=== PATIENT | female | born 1935 | race Two or more races ===

== ENCOUNTER 2017-02-17 02:25 | Observation (INO) | payer MEDICAID, OTHER ==
[~2017-02-17] VITALS: Ht 165.1 cm; Wt 82.0 kg
[2017-02-17] VITALS (15 sets, daily range): BP systolic 103–158; BP diastolic 51–75
[~2017-02-17 02:25] MED LIST: DIO160T PO; DIPH-423 PO; VALS160T2 PO
[2017-02-17] MEDS ORDERED: nitroGLYCERIN 0.4mg SUBLingual tab SL PRN ×2 (02:30→09:10)
[2017-02-17] MEDS ORDERED: aspirin 81mg tab.chew PO ONE (02:30)
[2017-02-17 02:56] LABS: BASOPHILS % (AUTO) 0.5 % (0-1); EOSINOPHILS # (AUTO) 0.2 X10'3 (0-0.9); EOSINOPHILS % (AUTO) 1.9 % (0-6); HEMOGLOBIN 14.1 g/dl (12.0-16.0); LYMPHOCYTES # (AUTO) 2.9 X10'3 (1.1-4.8); LYMPHOCYTES % (AUTO) 33.3 % (21-51); MEAN CORPUSCULAR HEMOGLOBIN 28.5 PG (27.0-31.0); MEAN CORPUSCULAR HGB CONC 33.6 % (33.0-36.5); MEAN CORPUSCULAR VOLUME 84.9 FL (78-98); MEAN PLATELET VOLUME 7.2 FL (7.4-10.4); MONOCYTES # (AUTO) 0.8 X10'3 (0-0.9); MONOCYTES % (AUTO) 9.5 % (2-12); NEUTROPHILS # (AUTO) 4.7 X10'3 (1.8-7.7); NEUTROPHILS % (AUTO) 54.8 % (42-75); PLATELET COUNT 365 X10'3 (140-440); RED BLOOD COUNT 4.95 X10'6 (4.20-5.60); RED CELL DISTRIBUTION WIDTH 13.4 % (11.5-14.5); WHITE BLOOD COUNT 8.6 X10'3 (4.5-11.0)
[2017-02-17 03:07] LABS: PARTIAL THROMBOPLASTIN TIME 25 SECONDS (22-32); PROTHROMBIN TIME 10.3 SECONDS (9.0-12.0)
[2017-02-17 03:12] LABS: ALANINE AMINOTRANSFERASE 22 U/L (12-78); ALBUMIN 3.3 G/DL (3.4-5.0); ALBUMIN/GLOBULIN RATIO 0.8 (1.1-1.5); ALKALINE PHOSPHATASE 80 IU/L (46-116); ANION GAP 5 (8-16); ASPARTATE AMINO TRANSFERASE 14 U/L (10-37); BILIRUBIN,TOTAL 0.2 MG/DL (0.1-1.0); BLOOD UREA NITROGEN 11 MG/DL (7-18); BUN/CREATININE RATIO 13.3 (6.6-38.0); CALCIUM 8.9 MG/DL (8.5-10.1); CHLORIDE 106 MMOL/L (99-107); CREATININE 0.83 MG/DL (0.40-0.90); GLUCOSE 135 MG/DL (70-104); MAGNESIUM 1.9 MG/DL (1.5-2.4); POTASSIUM 4.4 MMOL/L (3.5-5.1); SODIUM 140 MMOL/L (135-145); TOTAL PROTEIN 7.3 G/DL (6.4-8.2); eGFR 66 ML/MIN
[2017-02-17] MEDS ORDERED: normal saline 1000ml 1,000 ML IV SCH ×2 (08:42→10:58)
[2017-02-17] MEDS ORDERED: magnesium Cl slow-release 64mg tablet PO PRN ×2 (08:45→11:00)
[2017-02-17] MEDS ORDERED: HYDROcodone/acetaminophen 5mg/325mg tablet PO PRN (08:45)
[2017-02-17] MEDS ORDERED: magnesium hydroxide 30ml (MOM) UD suspension PO PRN ×2 (08:45→11:00)
[2017-02-17] MEDS ORDERED: mag hydrox/Alum hydrox/simeth 30ml oral suspension PO PRN ×2 (08:45→11:00)
[2017-02-17] MEDS ORDERED: HYDROcodone/acetaminophen 10/325mg tab PO PRN (08:45)
[2017-02-17] MEDS ORDERED: magnesium 4gm in 100ml NS 100 ML IV PRN ×2 (08:45→11:00)
[2017-02-17] MEDS ORDERED: morphine 8mg/ml inj. syringe IV PRN ×2 (08:45)
[2017-02-17] MEDS ORDERED: acetaminophen 325mg tablet PO PRN ×3 (08:45→11:00)
[2017-02-17] MEDS ORDERED: ondansetron/PF 4mg/2ml inj IV PRN ×2 (08:45→11:00)
[2017-02-17] MEDS ORDERED: potassium Cl 20 mEq SR tablet PO PRN ×4 (08:45→11:00)
[2017-02-17] MEDS ORDERED: potassium Cl 40MEQ/NS 500ml 500 ML IV PRN ×4 (08:45→11:00)
[2017-02-17] MEDS ORDERED: magnesium 2GM in 50ml NS 50 ML IV PRN ×2 (08:45→11:00)
[2017-02-17] MEDS ORDERED: AMOX500C2 PO (08:48)
[2017-02-17] MEDS ORDERED: BENZ200C53 PO (08:52)
[2017-02-17] MEDS ORDERED: AMLO5TAB16 PO (08:52)
[2017-02-17] MEDS ORDERED: LOSA50TA37 PO (08:52)
[2017-02-17] MEDS: K and/or MAG REPLACEMENT MC SCH (09:06)
[2017-02-17] MEDS ORDERED: aminophylline 250mg/10ml inj. IV PRN (09:10)
[2017-02-17] MEDS ORDERED: metoprolol tartrate 1mg/ml inj IV PRN (09:10)
[2017-02-17] MEDS: regadenoson 0.4mg/5ml syringe IV ONE ×2 (09:52→12:49)
[2017-02-17] MEDS ORDERED: K and/or MAG REPLACEMENT MC SCH (11:00)
[2017-02-17] MEDS ORDERED: aminophylline inj. 10 ML IV ONE (12:40)
[2017-02-17] MEDS ORDERED: regadenoson 0.4mg/5ml syringe IV ONE (12:40)
[2017-02-17] MEDS ORDERED: isosorbide mononitrate 30mg tab.SR.24H PO ONE ×2 (17:25→19:10)
[2017-02-17] MEDS: docusate sod 100mg capsule PO SCH (20:00)
[2017-02-17] MEDS: losartan 25mg tablet PO SCH (20:00)
[2017-02-17] MEDS ORDERED: temazepam 15mg capsule PO PRN ×2 (21:00)
[2017-02-18 02:00] VITALS: BP 97/54
[2017-02-18 05:14] LABS: BASOPHILS % (AUTO) 0.4 % (0-1); EOSINOPHILS # (AUTO) 0.2 X10'3 (0-0.9); HEMATOCRIT 38.6 % (35.0-45.0); HEMOGLOBIN 12.9 g/dl (12.0-16.0); LYMPHOCYTES # (AUTO) 2.3 X10'3 (1.1-4.8); LYMPHOCYTES % (AUTO) 26.4 % (21-51); MEAN CORPUSCULAR HEMOGLOBIN 28.3 PG (27.0-31.0); MEAN CORPUSCULAR HGB CONC 33.5 % (33.0-36.5); MEAN CORPUSCULAR VOLUME 84.6 FL (78-98); MEAN PLATELET VOLUME 7.5 FL (7.4-10.4); NEUTROPHILS # (AUTO) 5.2 X10'3 (1.8-7.7); NEUTROPHILS % (AUTO) 60.2 % (42-75); PLATELET COUNT 327 X10'3 (140-440); RED BLOOD COUNT 4.57 X10'6 (4.20-5.60); RED CELL DISTRIBUTION WIDTH 13.7 % (11.5-14.5); WHITE BLOOD COUNT 8.6 X10'3 (4.5-11.0)
[2017-02-18 05:30] VITALS: BP 107/51
[2017-02-18 05:30] LABS: PROTHROMBIN TIME 10.4 SECONDS (9.0-12.0)
[2017-02-18 05:41] LABS: ALBUMIN 2.9 G/DL (3.4-5.0); ANION GAP 9 (8-16); BLOOD UREA NITROGEN 14 MG/DL (7-18); BUN/CREATININE RATIO 16.7 (6.6-38.0); CALCIUM 8.8 MG/DL (8.5-10.1); CHLORIDE 105 MMOL/L (99-107); CREATININE 0.84 MG/DL (0.40-0.90); GLUCOSE 131 MG/DL (70-104); MAGNESIUM 1.9 MG/DL (1.5-2.4); POTASSIUM 4.4 MMOL/L (3.5-5.1); SODIUM 140 MMOL/L (135-145); TOTAL CARBON DIOXIDE 25.8 MMOL/L (24-32); eGFR 65 ML/MIN
[2017-02-18 08:00] VITALS: BP_SYST 124; BP_SYST 128; BP_SYST 133; BP_DIAS 52; BP_DIAS 62; BP_DIAS 85
[2017-02-18] MEDS: K and/or MAG REPLACEMENT MC SCH (08:00)
[2017-02-18] MEDS ORDERED: enoxaparin 40mg/0.4ml syringe SQ SCH ×2 (08:00)
[2017-02-18] MEDS: losartan 25mg tablet PO SCH (08:00)
[2017-02-18] MEDS: docusate sod 100mg capsule PO SCH (08:00)
[2017-02-18] MEDS ORDERED: PANT40TA4 PO (10:27)
[2017-02-18] MEDS ORDERED: ASPI81TA52 PO (10:27)
== END 2017-02-18 11:30 | disposition home or self-care (01) ==
LOC: ER 02:26 → PCU 3S 11:07
PROVIDERS: ADMIT Internal Medicine; ATTEND Internal Medicine
DX: R07.89 Other chest pain (principal); K21.9 Gastro-esophageal reflux disease without esophagitis; J44.9 Chronic obstructive pulmonary disease, unspecified; I10 Essential (primary) hypertension; I07.1 Rheumatic tricuspid insufficiency; I34.0 Nonrheumatic mitral (valve) insufficiency
CPT/HCPCS: 36415; 71010; 78452; 80048; 80053; 83735; 84484; 85025; 85610; 85730; 87070; 93005; 93017; 93306; 96360; 99285; A9500; G0378; J0280; J2785; J7030; J1650

== ENCOUNTER 2018-04-23 13:33 | Emergency (ER) | payer MEDICAID ==
[~2018-04-23] VITALS: Ht 170.2 cm; Wt 86.4 kg
[~2018-04-23 13:33] MED LIST changes: +AMLO5TAB16 PO; +BENZ200C53 PO; -DIO160T PO; -DIPH-423 PO; +LOSA50TA64 PO; +PANT40TA4 PO; -VALS160T2 PO
[2018-04-23 14:20] LABS: BASOPHILS % (AUTO) 0.7 % (0-1); EOSINOPHILS # (AUTO) 0.1 X10'3 (0-0.9); EOSINOPHILS % (AUTO) 1.7 % (0-6); HEMATOCRIT 43.1 % (35.0-45.0); HEMOGLOBIN 14.3 g/dl (12.0-16.0); LYMPHOCYTES # (AUTO) 2.4 X10'3 (1.1-4.8); LYMPHOCYTES % (AUTO) 36.1 % (21-51); MEAN CORPUSCULAR HEMOGLOBIN 28.7 PG (27.0-31.0); MEAN CORPUSCULAR HGB CONC 33.3 g/dL (33.0-36.5); MEAN CORPUSCULAR VOLUME 86.1 FL (78-98); MEAN PLATELET VOLUME 8.3 FL (7.4-10.4); MONOCYTES # (AUTO) 0.8 X10'3 (0-0.9); MONOCYTES % (AUTO) 11.7 % (2-12); NEUTROPHILS # (AUTO) 3.4 X10'3 (1.8-7.7); NEUTROPHILS % (AUTO) 49.8 % (42-75); PLATELET COUNT 277 X10'3 (140-440); RED CELL DISTRIBUTION WIDTH 13.7 % (11.5-14.5); WHITE BLOOD COUNT 6.8 X10'3 (4.5-11.0)
[2018-04-23 14:29] LABS: ALANINE AMINOTRANSFERASE 27 U/L (12-78); ALBUMIN 3.6 G/DL (3.4-5.0); ALKALINE PHOSPHATASE 103 IU/L (46-116); ANION GAP 10 (8-16); ASPARTATE AMINO TRANSFERASE 15 U/L (10-37); BILIRUBIN,TOTAL 0.3 MG/DL (0.1-1.0); BLOOD UREA NITROGEN 16 MG/DL (7-18); BUN/CREATININE RATIO 20.3 (6.6-38.0); CALCIUM 9.4 MG/DL (8.5-10.1); CHLORIDE 102 MMOL/L (99-107); CREATININE 0.79 MG/DL (0.40-0.90); GLUCOSE 161 MG/DL (70-104); POTASSIUM 3.8 MMOL/L (3.5-5.1); SODIUM 139 MMOL/L (135-145); TOTAL CARBON DIOXIDE 27.1 MMOL/L (24-32); TOTAL PROTEIN 7.3 G/DL (6.4-8.2); eGFR 70 ML/MIN
[2018-04-23] MEDS ORDERED: ibuprofen tablet 400 MG TABLET PO ONE (14:40)
[2018-04-23 14:42] LABS: MAGNESIUM 1.8 MG/DL (1.5-2.4)
[2018-04-23] MEDS ORDERED: ibuprofen 200mg tablet PO ONE (14:45)
[2018-04-23 15:02] VITALS: BP 114/71
[2018-04-23 15:10] LABS: D-DIMER 0.56 MG/L FEU (0-0.50)
== END 2018-04-23 15:52 | disposition home or self-care (01) ==
LOC: ER 13:33
DX: R07.89 Other chest pain (principal); I10 Essential (primary) hypertension; J44.9 Chronic obstructive pulmonary disease, unspecified; F17.210 Nicotine dependence, cigarettes, uncomplicated
CPT/HCPCS: 36415; 71045; 80053; 83735; 83880; 84484; 85025; 85379; 85610; 93005; 99284

== ENCOUNTER 2018-06-04 07:10 | Inpatient (IN) | payer MEDICAID | END 2018-06-22 13:20 | LOC: ICU 2S 06-21 02:38 → ER 07:10 → ICU 2S 11:15 ==

== ENCOUNTER 2019-07-26 09:08 | Outpatient (CLI) | payer MEDICAID ==
[~2019-07-26] VITALS: Ht 160 cm; Wt 76.0 kg
[2019-07-26] VITALS (7 sets, daily range): BP systolic 140–165; BP diastolic 49–69
[~2019-07-26 09:08] MED LIST changes: -AMLO5TAB16 PO; +ASPI-1 PO; +ATOR20TA66 PO; -BENZ200C53 PO; +CLOP75TA35 PO; +COR3.125T PO; +IPRA3AMP9 NEB; +LACT1CAP26 PO; +LISI-642 PO; -LOSA50TA64 PO; +MYC15CR TP; +NYST1000 PO
[2019-07-26] MEDS ORDERED: nitroGLYCERIN 0.4mg SUBLingual tab SL PRN (10:25)
[2019-07-26] MEDS ORDERED: aminophylline 250mg/10ml inj. IV PRN (10:25)
[2019-07-26] MEDS ORDERED: normal saline 500ml IV soln 500 ML IV ONE (10:25)
[2019-07-26] MEDS ORDERED: regadenoson 0.4mg/5ml syringe IV ONE (10:25)
== END 2019-07-26 23:59 | disposition home or self-care (01) ==
LOC: RAD 09:08
PROVIDERS: ATTEND Internal Medicine Cardiovascular Disease
DX: I25.10 Atherosclerotic heart disease of native coronary artery without angina pectoris (principal)
CPT/HCPCS: 78452; 82948; 93017; A9500; J2785; J7040

== ENCOUNTER 2019-08-01 13:04 | Outpatient (CLI) | payer MEDICAID | END 2019-08-01 23:59 | disposition home or self-care (01) | LOC: CARD DIAG 13:04 | PROVIDERS: ATTEND Internal Medicine Cardiovascular Disease | DX: I08.0 Rheumatic disorders of both mitral and aortic valves (principal); I25.10 Atherosclerotic heart disease of native coronary artery without angina pectoris | CPT/HCPCS: 93306 ==

== ENCOUNTER 2019-10-05 10:41 | Emergency (ER) | payer MEDICAID ==
[~2019-10-05] VITALS: Ht 170.2 cm; Wt 76.4 kg
[2019-10-05] MEDS ORDERED: aspirin 81mg tab.chew PO ONE (10:50)
[2019-10-05] MEDS ORDERED: nitroGLYCERIN 0.4mg SUBLingual tab SL PRN (10:50)
--- NOTE | 2019-10-05 11:04 | NUR ---
PT TAKEN TO CT FROM ROOM 19.
[2019-10-05 11:26] LABS: BASOPHILS % (AUTO) 0.5 % (0-1); EOSINOPHILS # (AUTO) 0.1 X10'3 (0-0.9); EOSINOPHILS % (AUTO) 1.2 % (0-6); HEMATOCRIT 44.5 % (35.0-45.0); HEMOGLOBIN 14.8 g/dl (12.0-16.0); LYMPHOCYTES # (AUTO) 1.9 X10'3 (1.1-4.8); LYMPHOCYTES % (AUTO) 33.5 % (21-51); MEAN CORPUSCULAR HEMOGLOBIN 28.6 PG (27.0-31.0); MEAN CORPUSCULAR HGB CONC 33.4 g/dL (33.0-36.5); MEAN CORPUSCULAR VOLUME 85.7 FL (78-98); MEAN PLATELET VOLUME 7.8 FL (7.4-10.4); MONOCYTES # (AUTO) 0.6 X10'3 (0-0.9); MONOCYTES % (AUTO) 10.1 % (2-12); NEUTROPHILS # (AUTO) 3.1 X10'3 (1.8-7.7); NEUTROPHILS % (AUTO) 54.7 % (42-75); PLATELET COUNT 241 X10'3 (140-440); RED BLOOD COUNT 5.19 X10'6 (4.20-5.60); RED CELL DISTRIBUTION WIDTH 14.4 % (11.5-14.5); WHITE BLOOD COUNT 5.7 X10'3 (4.5-11.0)
[2019-10-05 11:39] LABS: ALANINE AMINOTRANSFERASE 26 U/L (12-78); ALBUMIN 3.9 G/DL (3.4-5.0); ALBUMIN/GLOBULIN RATIO 1.1 (1.1-1.5); ALKALINE PHOSPHATASE 78 IU/L (46-116); ANION GAP 7 (8-16); ASPARTATE AMINO TRANSFERASE 19 U/L (10-37); BILIRUBIN,TOTAL 0.4 MG/DL (0.1-1.0); BLOOD UREA NITROGEN 17 MG/DL (7-18); CALCIUM 9.6 MG/DL (8.5-10.1); CHLORIDE 104 MMOL/L (99-107); CREATININE 0.85 MG/DL (0.40-0.90); GLUCOSE 121 MG/DL (70-104); SODIUM 140 MMOL/L (135-145); TOTAL CARBON DIOXIDE 28.8 MMOL/L (24-32); TOTAL PROTEIN 7.4 G/DL (6.4-8.2); eGFR 64 ML/MIN
--- NOTE | 2019-10-05 11:42 | NUR ---
jaren rascon at bedside assessing the cp ,notified pt has not taken any nitro or aspirin.pt denies any cp at this time ,pt has taken asprin in morning .
--- NOTE | 2019-10-05 12:11 | NUR ---
discussed the poc to daughter as told by jaren rascon.pt and daughter verbalized understanding denies nay concern.
--- NOTE | 2019-10-05 12:20 | NUR ---
PT WALKED TO RESTROOM WITH HER DAUGHTER NO DISTRESS NOTED ,DENIES ANY DIZZINESS OR LIGHTHEADEDNESS.
[2019-10-05 13:37] VITALS: BP 144/76
== END 2019-10-05 13:38 | disposition home or self-care (01) ==
LOC: ER 10:42
DX: I10 Essential (primary) hypertension (principal); R07.89 Other chest pain; R42 Dizziness and giddiness; R51 Headache; I25.10 Atherosclerotic heart disease of native coronary artery without angina pectoris; E78.00 Pure hypercholesterolemia, unspecified; I25.2 Old myocardial infarction; J44.9 Chronic obstructive pulmonary disease, unspecified; K21.9 Gastro-esophageal reflux disease without esophagitis; Z98.890 Other specified postprocedural states; Z72.89 Other problems related to lifestyle; Z79.82 Long term (current) use of aspirin; Z79.899 Other long term (current) drug therapy
CPT/HCPCS: 36415; 70450; 71045; 80053; 83880; 84484; 85025; 93005; 99285

== ENCOUNTER → 2020-03-26 | Outpatient (CLI) | payer MEDICAID ==
[~2020-03-26] VITALS: Ht 160 cm; Wt 79.0 kg
[2020-03-26] VITALS (8 sets, daily range): BP systolic 143–176; BP diastolic 64–73
[~2020-03-26] MED LIST changes: +CLOP75TA34 PO; -CLOP75TA35 PO; -PANT40TA4 PO; +PANT40TA54 PO; +aminophylline 250mg/10ml inj. IV PRN; +aminophylline inj. 10 ML IV ONE; +nitroGLYCERIN 0.4mg SUBLingual tab SL PRN; +normal saline 500ml IV soln 500 ML IV ONE; +regadenoson 0.4mg/5ml syringe IV ONE
== END | disposition home or self-care (01) ==
LOC: RAD 07:55
PROVIDERS: ATTEND Internal Medicine Cardiovascular Disease
DX: R07.9 Chest pain, unspecified (principal)
CPT/HCPCS: 78452; 93017; A9500; J0280; J7040

== ENCOUNTER 2020-05-10 19:17 | Emergency (ER) | payer MEDICAID ==
[~2020-05-10] VITALS: Ht 167.6 cm; Wt 78.6 kg
[~2020-05-10 19:17] MED LIST changes: -aminophylline 250mg/10ml inj. IV PRN; -aminophylline inj. 10 ML IV ONE; -nitroGLYCERIN 0.4mg SUBLingual tab SL PRN; -normal saline 500ml IV soln 500 ML IV ONE; -regadenoson 0.4mg/5ml syringe IV ONE
[2020-05-10 21:23] LABS: BASOPHILS % (AUTO) 0.2 % (0-1); EOSINOPHILS # (AUTO) 0.1 X10'3 (0-0.9); HEMATOCRIT 40.9 % (35.0-45.0); HEMOGLOBIN 13.6 g/dl (12.0-16.0); LYMPHOCYTES # (AUTO) 1.9 X10'3 (1.1-4.8); LYMPHOCYTES % (AUTO) 21.4 % (21-51); MEAN CORPUSCULAR HEMOGLOBIN 28.4 PG (27.0-31.0); MEAN CORPUSCULAR HGB CONC 33.3 g/dL (33.0-36.5); MEAN CORPUSCULAR VOLUME 85.2 FL (78-98); MEAN PLATELET VOLUME 8.3 FL (7.4-10.4); MONOCYTES # (AUTO) 0.9 X10'3 (0-0.9); MONOCYTES % (AUTO) 9.7 % (2-12); NEUTROPHILS % (AUTO) 67.7 % (42-75); PLATELET COUNT 228 X10'3 (140-440); RED CELL DISTRIBUTION WIDTH 14.3 % (11.5-14.5); WHITE BLOOD COUNT 8.9 X10'3 (4.5-11.0)
[2020-05-10 21:29] LABS: CLARITY,URINE CLEAR (Clear); COLOR,URINE YELLOW (Yellow); GLUCOSE, URINE NEGATIVE (Neg); KETONES,URINE NEGATIVE (Neg); LEUKOCYTE ESTERASE ,URINE NEGATIVE (Neg); NITRITES, URINE NEGATIVE (Neg); OCCULT BLOOD,URINE NEGATIVE (Neg); PROTEIN,URINE NEGATIVE (Neg); UROBILINOGEN,URINE 0.2 E.U/dL (0.2-1.0)
[2020-05-10 21:35] LABS: PARTIAL THROMBOPLASTIN TIME 25 SECONDS (22-32)
[2020-05-10] MEDS ORDERED: acetaminophen 325mg tablet PO ONE (21:35)
[2020-05-10 21:36] LABS: ALANINE AMINOTRANSFERASE 26 U/L (12-78); ALBUMIN 3.5 G/DL (3.4-5.0); ALKALINE PHOSPHATASE 71 IU/L (46-116); ANION GAP 8 (8-16); ASPARTATE AMINO TRANSFERASE 16 U/L (10-37); BILIRUBIN,TOTAL 0.2 MG/DL (0.1-1.0); BLOOD UREA NITROGEN 21 MG/DL (7-18); BUN/CREATININE RATIO 24.7 (6.6-38.0); CHLORIDE 103 MMOL/L (99-107); CREATININE 0.85 MG/DL (0.40-0.90); GLUCOSE 112 MG/DL (70-104); SODIUM 138 MMOL/L (135-145); TOTAL CARBON DIOXIDE 27.3 MMOL/L (24-32); TOTAL PROTEIN 6.9 G/DL (6.4-8.2); eGFR 64 ML/MIN
[2020-05-10 21:41] LABS: UA COLLECTION TYPE CLN CATCH MIDSTREAM
[2020-05-10] MEDS ORDERED: dexamethasone sod phosphate 10mg/ml inj IV STA (22:13)
[2020-05-10] MEDS ORDERED: ketorolac tromethamine 15mg/ml inj. IV ONE (22:15)
[2020-05-10] MEDS ORDERED: proCHLORperazine 10 MG/2 ml inj IV ONE (22:15)
[2020-05-10] MEDS ORDERED: diphenhydrAMINE 50 mg/ml inj IV ONE (22:15)
[2020-05-10] MEDS ORDERED: normal saline 1000ml 1,000 ML IV ONE (22:15)
--- NOTE | 2020-05-10 22:21 | NUR ---
GARCIA IN ROOM PATIENT REFUSED IVF AND MEDICATION
--- NOTE | 2020-05-10 22:23 | NUR ---
GARCIA EXPLAINED WHAT THE MEDICATIONS WERE FOR WAITING TO INITIATE IVF REFUSES MEDICATION WANTS TO GO HOME. REFUSES IVF OR IV FOR HOME DAUGHTER AND PATIENT WANT TO GO HOME
--- NOTE | 2020-05-10 22:26 | NUR ---
FAMILY REQUESTING COVID SWAB PRIOR TO LEAVING .
[2020-05-10 23:00] VITALS: BP 155/81
== END 2020-05-10 23:02 | disposition home or self-care (01) ==
LOC: ER 19:19
DX: G43.909 Migraine, unspecified, not intractable, without status migrainosus (principal); Z20.822 Contact with and (suspected) exposure to COVID-19; I25.10 Atherosclerotic heart disease of native coronary artery without angina pectoris; E78.00 Pure hypercholesterolemia, unspecified; I10 Essential (primary) hypertension; I25.2 Old myocardial infarction; J44.9 Chronic obstructive pulmonary disease, unspecified; K21.9 Gastro-esophageal reflux disease without esophagitis; Z98.890 Other specified postprocedural states; Z72.89 Other problems related to lifestyle; Z88.8 Allergy status to other drugs, medicaments and biological substances; Z79.82 Long term (current) use of aspirin; Z79.899 Other long term (current) drug therapy
CPT/HCPCS: 36415; 70450; 71045; 80053; 81003; 82948; 84484; 85025; 85610; 85651; 85730; 93005; 99285; U0003

== ENCOUNTER 2020-05-29 14:15 | Outpatient (CLI) | payer MEDICAID | END 2020-05-29 23:59 | disposition home or self-care (01) | LOC: RT 14:15 | PROVIDERS: ATTEND Student in an Organized Health Care Education/Training Program | DX: R94.2 Abnormal results of pulmonary function studies (principal) | CPT/HCPCS: 94010 ==

== ENCOUNTER 2020-11-06 11:29 | Inpatient (IN) | payer MEDICAID ==
[~2020-11-06] VITALS: Ht 162.6 cm; Wt 82.9 kg
[2020-11-06 12:10] LABS: BASOPHILS # (AUTO) 0.1 X10'3 (0-0.2); BASOPHILS % (AUTO) 1.7 % (0-1); EOSINOPHILS # (AUTO) 0.1 X10'3 (0-0.9); EOSINOPHILS % (AUTO) 1.7 % (0-6); HEMATOCRIT 43.8 % (35.0-45.0); HEMOGLOBIN 14.5 g/dl (12.0-16.0); LYMPHOCYTES # (AUTO) 1.7 X10'3 (1.1-4.8); MEAN CORPUSCULAR HEMOGLOBIN 28.6 PG (27.0-31.0); MEAN CORPUSCULAR HGB CONC 33.1 g/dL (33.0-36.5); MEAN CORPUSCULAR VOLUME 86.5 FL (78-98); MEAN PLATELET VOLUME 7.9 FL (7.4-10.4); MONOCYTES # (AUTO) 0.5 X10'3 (0-0.9); MONOCYTES % (AUTO) 10.6 % (2-12); NEUTROPHILS # (AUTO) 2.8 X10'3 (1.8-7.7); PLATELET COUNT 236 X10'3 (140-440); RED BLOOD COUNT 5.06 X10'6 (4.20-5.60); RED CELL DISTRIBUTION WIDTH 14.4 % (11.5-14.5); WHITE BLOOD COUNT 5.2 X10'3 (4.5-11.0)
[2020-11-06 12:36] LABS: ALANINE AMINOTRANSFERASE 29 U/L (12-78); ALBUMIN 3.7 G/DL (3.4-5.0); ALBUMIN/GLOBULIN RATIO 1.1 (1.1-1.5); ALKALINE PHOSPHATASE 73 IU/L (46-116); ANION GAP 9 (8-16); ASPARTATE AMINO TRANSFERASE 19 U/L (10-37); BILIRUBIN,TOTAL 0.4 MG/DL (0.1-1.0); BLOOD UREA NITROGEN 12 MG/DL (7-18); BUN/CREATININE RATIO 17.4 (6.6-38.0); CHLORIDE 108 MMOL/L (99-107); CREATININE 0.69 MG/DL (0.40-0.90); GLUCOSE 75 MG/DL (70-104); POTASSIUM 3.9 MMOL/L (3.5-5.1); SODIUM 146 MMOL/L (135-145); TOTAL CARBON DIOXIDE 28.8 MMOL/L (24-32); TOTAL PROTEIN 7.1 G/DL (6.4-8.2); eGFR 81 ML/MIN
[2020-11-06] MEDS ORDERED: aspirin 81mg tab.chew PO ONE (16:25)
[2020-11-06] MEDS ORDERED: nitroGLYCERIN 1gm ointment UD TP ONE (16:25)
[2020-11-06] MEDS ORDERED: heparin 10,000 units/1 ML INJ IV ONE ×2 (17:15→17:20)
[2020-11-06] MEDS ORDERED: heparin 10,000 units/1 ML INJ IV PRN (17:15)
[2020-11-06] MEDS ORDERED: heparin 25,000 UNIT/250ml bag 250 ML IV SCH (17:15)
[2020-11-06] MEDS ORDERED: potassium Cl 20 mEq SR tablet PO PRN ×2 (17:25)
[2020-11-06] MEDS ORDERED: albuterol 2.5 MG/3 ML nebule NEB PRN (17:25)
[2020-11-06] MEDS ORDERED: PERFLUTREN PROTEIN-A MICROSPHR (Optison) 0.22 MG/ML 3ML VIAL IV ONE (17:25)
[2020-11-06] MEDS ORDERED: magnesium 4gm in 100ml NS 100 ML IV PRN (17:25)
[2020-11-06] MEDS ORDERED: potassium Cl 40MEQ/1/2NS 520ml 520 ML IV PRN ×2 (17:25)
[2020-11-06] MEDS ORDERED: acetaminophen 325mg tablet PO PRN (17:25)
[2020-11-06] MEDS ORDERED: magnesium hydroxide 30ml (MOM) UD suspension PO PRN (17:25)
[2020-11-06] MEDS ORDERED: mag hydrox/Alum hydrox/simeth 30ml oral suspension PO PRN (17:25)
[2020-11-06] MEDS ORDERED: ondansetron/PF 4mg/2ml inj IV PRN (17:25)
[2020-11-06] MEDS ORDERED: ipratropium/albuterol 3ml nebule NEB PRN (17:25)
[2020-11-06] MEDS ORDERED: morphine 2 MG/ML inj. syringe IV PRN ×2 (17:25)
[2020-11-06] MEDS ORDERED: magnesium 2GM in 50ml NS 50 ML IV PRN (17:25)
--- NOTE | 2020-11-06 17:30 | NUR ---
Pt transferred from ER main to overflow bed 27 via w/c accompanied by tech and daughter.
[2020-11-06] MEDS ORDERED: hydrALAZINE 20mg/ml inj. IV PRN (17:40)
--- NOTE | 2020-11-06 17:45 | NUR ---
Received telephone VO from Dr. Alejandro to DC heparin gtt and pt to be placed on heparin.
[2020-11-06] MEDS ORDERED: enoxaparin 100mg/ml syringe SUBCUT ONE (17:50)
[2020-11-06] MEDS ORDERED: LISI40TA13 PO (18:05)
[2020-11-06] MEDS ORDERED: FLUT15.87 (18:05)
[2020-11-06] MEDS ORDERED: METH-797 PO (18:05)
[2020-11-06] MEDS ORDERED: CALC-157 PO (18:05)
[2020-11-06] MEDS ORDERED: CAPS60CR6 TOP (18:05)
[2020-11-06] MEDS ORDERED: PRAV80TA3 PO (18:05)
[2020-11-06] MEDS ORDERED: METF-436 PO (18:05)
[2020-11-06] MEDS ORDERED: LORA10TA7 PO (18:05)
[2020-11-06] MEDS ORDERED: ASPI-1397 PO (18:05)
[2020-11-06] MEDS ORDERED: SUMA25TA9 PO (18:05)
[2020-11-06] MEDS ORDERED: LEVO25TA7 PO (18:05)
[2020-11-06] MEDS ORDERED: CLOP75TA15 PO (18:06)
[2020-11-06] MEDS ORDERED: CARV3.122 PO (18:06)
[2020-11-06 18:08] LABS: PARTIAL THROMBOPLASTIN TIME 25 SECONDS (22-32)
[2020-11-06 18:59] LABS: COLOR,URINE YELLOW (Yellow); UA COLLECTION TYPE CLN CATCH MIDSTREAM
[2020-11-06 19:00] LABS: CLARITY,URINE CLEAR (Clear); PH,URINE 6.5 (4.8-8.0)
[2020-11-06 19:03] LABS: GLUCOSE, URINE NEGATIVE (Neg); KETONES,URINE NEGATIVE (Neg); LEUKOCYTE ESTERASE ,URINE NEGATIVE (Neg); NITRITES, URINE NEGATIVE (Neg); OCCULT BLOOD,URINE NEGATIVE (Neg); PROTEIN,URINE NEGATIVE (Neg); UROBILINOGEN,URINE 0.2 E.U/dL (0.2-1.0)
[2020-11-06] MEDS: normal saline 1000ml 1,000 ML IV SCH (19:52)
[2020-11-06] MEDS: K and/or MAG REPLACEMENT MC SCH (19:55)
[2020-11-06] MEDS: docusate sod 100mg capsule PO SCH ×2 (20:00→20:08)
--- NOTE | 2020-11-06 20:00 | NUR ---
Discussed plan of care with the patient and the patient's daughter. THey are aware that a repeat EKG and labs were due at midnight. The patient is denying that she is having chestpain at this time. She complaining of a headache but refused tylenol
[2020-11-06] MEDS: nitroGLYCERIN 0.4mg SUBLingual tab SL PRN ×3 (21:57→22:29)
--- NOTE | 2020-11-06 22:01 | NUR ---
The patient is complaining of left upper chest pain 10/10. She is refusing Morphine but did accept a nitro SL
--- NOTE | 2020-11-06 22:30 | NUR ---
Dr. Bartlett made aware that the patient is complaining of chest pain 12/08. MD stated not give anymore nitro at this time while HR in the 50s
--- NOTE | 2020-11-06 22:45 | NUR ---
The patient refusing morphine for chest pain. She appears to be resting comfortably at this time. Vital signs are stable at this time. No more complaints of pain
--- NOTE | 2020-11-06 23:03 | NUR ---
EKG done and reviewed.
[2020-11-07] MEDS ORDERED: morphine 2 MG/ML inj. syringe IV PRN
--- NOTE | 2020-11-07 00:49 | NUR ---
The patient appears to be resting comfortably. She was made aware of being NPO after midnight. Her daughter is at the bedside.
--- NOTE | 2020-11-07 02:45 | NUR ---
The patient appears to be resting comfortably with no s/s of discomfort. HR 51. Sinus bradycardia. BP 118/50
[2020-11-07 03:00] LABS: BASOPHILS % (AUTO) 0.4 % (0-1); EOSINOPHILS # (AUTO) 0.1 X10'3 (0-0.9); EOSINOPHILS % (AUTO) 2.1 % (0-6); HEMATOCRIT 39.5 % (35.0-45.0); HEMOGLOBIN 12.9 g/dl (12.0-16.0); LYMPHOCYTES # (AUTO) 2.2 X10'3 (1.1-4.8); LYMPHOCYTES % (AUTO) 36.5 % (21-51); MEAN CORPUSCULAR HEMOGLOBIN 28.2 PG (27.0-31.0); MEAN CORPUSCULAR HGB CONC 32.7 g/dL (33.0-36.5); MEAN CORPUSCULAR VOLUME 86.5 FL (78-98); MEAN PLATELET VOLUME 8.1 FL (7.4-10.4); MONOCYTES # (AUTO) 0.7 X10'3 (0-0.9); MONOCYTES % (AUTO) 12.3 % (2-12); NEUTROPHILS # (AUTO) 2.9 X10'3 (1.8-7.7); NEUTROPHILS % (AUTO) 48.7 % (42-75); PLATELET COUNT 206 X10'3 (140-440); RED BLOOD COUNT 4.57 X10'6 (4.20-5.60); RED CELL DISTRIBUTION WIDTH 14.7 % (11.5-14.5)
[2020-11-07 03:12] LABS: ALANINE AMINOTRANSFERASE 24 U/L (12-78); ALBUMIN 3.2 G/DL (3.4-5.0); ALBUMIN/GLOBULIN RATIO 1.1 (1.1-1.5); ALKALINE PHOSPHATASE 62 IU/L (46-116); ANION GAP 4 (8-16); ASPARTATE AMINO TRANSFERASE 15 U/L (10-37); BILIRUBIN,TOTAL 0.2 MG/DL (0.1-1.0); BLOOD UREA NITROGEN 15 MG/DL (7-18); CALCIUM 8.1 MG/DL (8.5-10.1); CHLORIDE 112 MMOL/L (99-107); CHOL/HDL RATIO 3.4 (0.00-4.99); CHOLESTEROL 99 MG/DL (0-200); CREATININE 0.79 MG/DL (0.40-0.90); GLUCOSE 86 MG/DL (70-104); HDL CHOLESTEROL 29 MG/DL (35-60); LDL CHOLESTEROL 50 MG/DL (50-100); MAGNESIUM 2.1 MG/DL (1.5-2.4); POTASSIUM 3.7 MMOL/L (3.5-5.1); SODIUM 145 MMOL/L (135-145); TOTAL CARBON DIOXIDE 28.8 MMOL/L (24-32); TRIGLYCERIDES 88 MG/DL (20-135); eGFR 70 ML/MIN
[2020-11-07] MEDS: normal saline 1000ml 1,000 ML IV SCH ×2 (04:56→13:25)
--- NOTE | 2020-11-07 05:08 | NUR ---
patient assisted up to use the bathroom. HR 55 and 02 sats 95 on RA
[2020-11-07 07:00] VITALS: BP 144/38
[2020-11-07] MEDS ORDERED: enoxaparin 40mg/0.4ml syringe SUBCUT SCH (08:00)
[2020-11-07] MEDS ORDERED: lisinopril 20mg tablet PO SCH (08:00)
[2020-11-07] MEDS: K and/or MAG REPLACEMENT MC SCH (08:00)
[2020-11-07] MEDS: docusate sod 100mg capsule PO SCH (08:00)
[2020-11-07] MEDS ORDERED: carVEDilol 3.125mg tablet PO SCH (08:00)
[2020-11-07 08:16] VITALS: BP 142/44
--- NOTE | 2020-11-07 13:07 | NUR ---
Cardiology Lyndsey Loera NP, spoke with patient about 3 options . Patient will speak with daughter and decide between the options of 1. Going for stress test, or 2. Going to [facility] with Dr. Jeronimo, or 3.Going home and treat medically with PCP and getting an EGD. Patient and daughter have decided to go home, treat medically and follow up with PCP and have an EGD. Lyndsey Loera NP informed
[2020-11-07] MEDS ORDERED: PANT40TA54 PO (15:22)
--- NOTE | 2020-11-07 16:00 | NUR ---
Patient stable and comfortable at time of discharge. All patient valuables gathered and given to patient and patient family member. Removed Telemetry and PIV with cannula intact. No redness or irritation at PIV site. Called in new prescription to [facility] in [place]. The patient and patient family member will supervisor picking crew medication on the way home. Gave discharge information and discharge education to patient and patient family member. Reviewed and answered questions with patient and patient family member about discharge information and discharge education. Patient and patient family member was able to verbalize back all discharge information and discharge education. Wheeled patient out in wheelchair to lobby. Patient left hospital in private vehicle with family member.
[2020-11-07] MEDS ORDERED: pravastatin 40mg tablet PO SCH (21:00)
== END 2020-11-07 16:10 | disposition home or self-care (01) | DRG 198 ==
LOC: ER 11:30 → OBSVTOIN 17:28 → ED HOLD 17:28 → PCU 3S 11-07 06:50
PROVIDERS: ADMIT Family Medicine; ATTEND Internal Medicine
DX: I25.110 Atherosclerotic heart disease of native coronary artery with unstable angina pectoris (principal); E87.0 Hyperosmolality and hypernatremia; R07.89 Other chest pain; E78.00 Pure hypercholesterolemia, unspecified; K21.9 Gastro-esophageal reflux disease without esophagitis; E78.5 Hyperlipidemia, unspecified; M19.09 Primary osteoarthritis, other specified site; I10 Essential (primary) hypertension; G43.909 Migraine, unspecified, not intractable, without status migrainosus; J44.9 Chronic obstructive pulmonary disease, unspecified; Z82.49 Family history of ischemic heart disease and other diseases of the circulatory system; Z86.79 Personal history of other diseases of the circulatory system; I25.2 Old myocardial infarction; Z87.891 Personal history of nicotine dependence; Z90.710 Acquired absence of both cervix and uterus; Z79.899 Other long term (current) drug therapy; Z79.82 Long term (current) use of aspirin
CPT/HCPCS: 36415; 71045; 80053; 80061; 81003; 83735; 83880; 84484; 85025; 85610; 85730; 87081; 93005; 93306; 94760; 99285; G0378; J1650; J2270; J7030

== ENCOUNTER 2020-11-09 12:04 | Inpatient (IN) | payer MEDICAID ==
[~2020-11-09] VITALS: Ht 162.6 cm; Wt 77.3 kg
[~2020-11-09 12:04] MED LIST changes: -ASPI-1 PO; +ASPI-1397 PO; -ATOR20TA66 PO; +CALC-157 PO; +CAPS60CR6 TOP; +CARV3.122 PO; +CLOP75TA15 PO; -CLOP75TA34 PO; -COR3.125T PO; +FLUT15.87; -IPRA3AMP9 NEB; -LACT1CAP26 PO; +LEVO25TA7 PO; -LISI-642 PO; +LISI40TA13 PO; +LORA10TA7 PO; +METF-436 PO; +METH-797 PO; -MYC15CR TP; -NYST1000 PO; +PRAV80TA3 PO; +SUMA25TA9 PO
--- NOTE | 2020-11-09 13:22 | NUR ---
awaiting to be seen by ed provider.
[2020-11-09 13:36] LABS: BASOPHILS % (AUTO) 0.4 % (0-1); EOSINOPHILS # (AUTO) 0.1 X10'3 (0-0.9); EOSINOPHILS % (AUTO) 1.6 % (0-6); HEMATOCRIT 45.9 % (35.0-45.0); HEMOGLOBIN 15.3 g/dl (12.0-16.0); LYMPHOCYTES # (AUTO) 1.9 X10'3 (1.1-4.8); LYMPHOCYTES % (AUTO) 33.5 % (21-51); MEAN CORPUSCULAR HEMOGLOBIN 28.6 PG (27.0-31.0); MEAN CORPUSCULAR HGB CONC 33.3 g/dL (33.0-36.5); MEAN CORPUSCULAR VOLUME 85.9 FL (78-98); MEAN PLATELET VOLUME 8.2 FL (7.4-10.4); MONOCYTES # (AUTO) 0.6 X10'3 (0-0.9); MONOCYTES % (AUTO) 10.8 % (2-12); NEUTROPHILS % (AUTO) 53.7 % (42-75); PLATELET COUNT 231 X10'3 (140-440); RED BLOOD COUNT 5.34 X10'6 (4.20-5.60); RED CELL DISTRIBUTION WIDTH 14.7 % (11.5-14.5); WHITE BLOOD COUNT 5.5 X10'3 (4.5-11.0)
[2020-11-09 13:48] LABS: ALANINE AMINOTRANSFERASE 34 U/L (12-78); ALBUMIN 3.9 G/DL (3.4-5.0); ALBUMIN/GLOBULIN RATIO 1.1 (1.1-1.5); ALKALINE PHOSPHATASE 81 IU/L (46-116); ANION GAP 9 (8-16); ASPARTATE AMINO TRANSFERASE 22 U/L (10-37); BILIRUBIN,TOTAL 0.4 MG/DL (0.1-1.0); BLOOD UREA NITROGEN 7 MG/DL (7-18); BUN/CREATININE RATIO 8.9 (6.6-38.0); CALCIUM 9.7 MG/DL (8.5-10.1); CHLORIDE 105 MMOL/L (99-107); CREATININE 0.79 MG/DL (0.40-0.90); GLUCOSE 133 MG/DL (70-104); POTASSIUM 3.9 MMOL/L (3.5-5.1); SODIUM 143 MMOL/L (135-145); TOTAL CARBON DIOXIDE 29.5 MMOL/L (24-32); TOTAL PROTEIN 7.5 G/DL (6.4-8.2); eGFR 70 ML/MIN
[2020-11-09 13:50] LABS: UA COLLECTION TYPE CLN CATCH MIDSTREAM
[2020-11-09 13:51] LABS: CLARITY,URINE CLEAR (Clear); COLOR,URINE STRAW (Yellow); PH,URINE 7.5 (4.8-8.0)
[2020-11-09 13:52] LABS: GLUCOSE, URINE NEGATIVE (Neg); KETONES,URINE NEGATIVE (Neg); LEUKOCYTE ESTERASE ,URINE NEGATIVE (Neg); NITRITES, URINE NEGATIVE (Neg); OCCULT BLOOD,URINE NEGATIVE (Neg); PROTEIN,URINE NEGATIVE (Neg); UROBILINOGEN,URINE 0.2 E.U/dL (0.2-1.0)
[2020-11-09 13:52] LABS: LIPASE 93 U/L (73-393); MAGNESIUM 2.2 MG/DL (1.5-2.4)
[2020-11-09] MEDS ORDERED: acetaminophen 325mg tablet PO PRN (14:25)
[2020-11-09] MEDS ORDERED: potassium Cl 20 mEq SR tablet PO PRN ×2 (14:25)
[2020-11-09] MEDS ORDERED: potassium Cl 40MEQ/1/2NS 520ml 520 ML IV PRN ×2 (14:25)
[2020-11-09] MEDS ORDERED: ondansetron/PF 4mg/2ml inj IV PRN (14:25)
[2020-11-09] MEDS ORDERED: magnesium Cl slow-release 64mg tablet PO PRN (14:25)
[2020-11-09] MEDS ORDERED: magnesium 2GM in 50ml NS 50 ML IV PRN (14:25)
[2020-11-09] MEDS ORDERED: HYDROcodone/acetaminophen 5mg/325mg tablet PO PRN (14:25)
[2020-11-09] MEDS ORDERED: mag hydrox/Alum hydrox/simeth 30ml oral suspension PO PRN (14:25)
[2020-11-09] MEDS ORDERED: magnesium hydroxide 30ml (MOM) UD suspension PO PRN (14:25)
[2020-11-09] MEDS ORDERED: magnesium 4gm in 100ml NS 100 ML IV PRN (14:25)
[2020-11-09] MEDS ORDERED: PANT-47 PO (14:41)
[2020-11-09] MEDS ORDERED: SUMAtriptan 25 MG tablet PO PRN (17:55)
--- NOTE | 2020-11-09 18:12 | NUR ---
BP 196/70 then 189/70mmhg,paged Dr. Rogers.
[2020-11-09] MEDS ORDERED: hydrALAZINE 20mg/ml inj. IV STA (18:36)
--- NOTE | 2020-11-09 18:36 | NUR ---
Spoke with Dr. Patterson,ordered hydralazine 5mg iv x1 for high bp.
[2020-11-09] MEDS: carVEDilol 3.125mg tablet PO SCH ×2 (19:07→20:00)
--- NOTE | 2020-11-09 19:08 | NUR ---
Patient family states that coreg is responsible for her elevated blood pressure and bradycardia
[2020-11-09] MEDS: K and/or MAG REPLACEMENT MC SCH (19:09)
[2020-11-09] MEDS: pantoprazole 40mg Tablet.DR PO SCH (19:09)
[2020-11-09] MEDS: docusate sod 100mg capsule PO SCH (19:09)
[2020-11-09] MEDS: calcium carbonate 500mg tablet PO SCH (20:00)
[2020-11-09] MEDS: capsaicin 0.025% 60gm cream TP SCH (20:14)
[2020-11-09] MEDS ORDERED: cyclobenzaprine 10mg tablet PO PRN (21:00)
[2020-11-09] MEDS ORDERED: hydrALAZINE 20mg/ml inj. IV ONE (22:35)
[2020-11-10] MEDS ORDERED: levoTHYROXINE 25mcg tablet PO SCH (07:00)
[2020-11-10 07:08] LABS: BASOPHILS % (AUTO) 0.7 % (0-1); EOSINOPHILS # (AUTO) 0.1 X10'3 (0-0.9); EOSINOPHILS % (AUTO) 1.8 % (0-6); HEMATOCRIT 44.2 % (35.0-45.0); HEMOGLOBIN 14.6 g/dl (12.0-16.0); LYMPHOCYTES % (AUTO) 32.3 % (21-51); MEAN CORPUSCULAR HEMOGLOBIN 28.6 PG (27.0-31.0); MEAN CORPUSCULAR HGB CONC 33.1 g/dL (33.0-36.5); MEAN CORPUSCULAR VOLUME 86.5 FL (78-98); MEAN PLATELET VOLUME 7.9 FL (7.4-10.4); MONOCYTES # (AUTO) 0.8 X10'3 (0-0.9); MONOCYTES % (AUTO) 12.6 % (2-12); NEUTROPHILS # (AUTO) 3.3 X10'3 (1.8-7.7); NEUTROPHILS % (AUTO) 52.6 % (42-75); PLATELET COUNT 224 X10'3 (140-440); RED BLOOD COUNT 5.11 X10'6 (4.20-5.60); RED CELL DISTRIBUTION WIDTH 14.8 % (11.5-14.5); WHITE BLOOD COUNT 6.2 X10'3 (4.5-11.0)
[2020-11-10 07:27] LABS: ALANINE AMINOTRANSFERASE 42 U/L (12-78); ALBUMIN 3.8 G/DL (3.4-5.0); ALBUMIN/GLOBULIN RATIO 1.1 (1.1-1.5); ALKALINE PHOSPHATASE 75 IU/L (46-116); ANION GAP 10 (8-16); ASPARTATE AMINO TRANSFERASE 29 U/L (10-37); BILIRUBIN,TOTAL 0.3 MG/DL (0.1-1.0); BLOOD UREA NITROGEN 16 MG/DL (7-18); BUN/CREATININE RATIO 18.4 (6.6-38.0); CALCIUM 9.4 MG/DL (8.5-10.1); CHLORIDE 110 MMOL/L (99-107); CREATININE 0.87 MG/DL (0.40-0.90); GLUCOSE 107 MG/DL (70-104); POTASSIUM 4.1 MMOL/L (3.5-5.1); SODIUM 148 MMOL/L (135-145); TOTAL CARBON DIOXIDE 28.5 MMOL/L (24-32); TOTAL PROTEIN 7.2 G/DL (6.4-8.2); eGFR 62 ML/MIN
[2020-11-10 07:30] LABS: MAGNESIUM 2.3 MG/DL (1.5-2.4)
[2020-11-10] MEDS: K and/or MAG REPLACEMENT MC SCH (07:51)
[2020-11-10] MEDS: carVEDilol 3.125mg tablet PO SCH (07:52)
[2020-11-10] MEDS: pantoprazole 40mg Tablet.DR PO SCH (08:00)
[2020-11-10] MEDS: calcium carbonate 500mg tablet PO SCH (08:00)
[2020-11-10] MEDS ORDERED: lisinopril 20mg tablet PO SCH (08:00)
[2020-11-10] MEDS: capsaicin 0.025% 60gm cream TP SCH ×2 (08:00→13:00)
[2020-11-10] MEDS ORDERED: aspirin 81mg, enteric-coated 1 TAB TABLET.DR PO SCH (08:00)
[2020-11-10] MEDS ORDERED: atorvastatin 20mg tablet PO SCH (08:00)
[2020-11-10] MEDS ORDERED: enoxaparin 40mg/0.4ml syringe SUBCUT SCH (08:00)
[2020-11-10] MEDS ORDERED: loratadine 10mg tablet PO SCH (08:00)
[2020-11-10] MEDS ORDERED: fluticasone nasal spray 16GM bottle NS SCH (08:00)
[2020-11-10] MEDS: docusate sod 100mg capsule PO SCH (08:00)
[2020-11-10] MEDS ORDERED: clopidogrel 75mg tablet PO SCH (08:00)
[2020-11-10 10:41] VITALS: BP 143/43
[2020-11-10] MEDS ORDERED: iohexol 350MG/ML 100ml bottle IV ONE (11:55)
== END 2020-11-10 15:30 | disposition home or self-care (01) | DRG 47 ==
LOC: ER 12:04 → ED HOLD 14:29
PROVIDERS: ADMIT Internal Medicine; ATTEND Internal Medicine
PROC: B3251ZZ Computerized Tomography (CT Scan) of Bilateral Common Carotid Arteries using Low Osmolar Contrast (ICD-10-PCS; principal; 2020-11-10)
PROC: B32G1ZZ Computerized Tomography (CT Scan) of Bilateral Vertebral Arteries using Low Osmolar Contrast (ICD-10-PCS; 2020-11-10)
PROC: B32R1ZZ Computerized Tomography (CT Scan) of Intracranial Arteries using Low Osmolar Contrast (ICD-10-PCS; 2020-11-10)
PROC: B3281ZZ Computerized Tomography (CT Scan) of Bilateral Internal Carotid Arteries using Low Osmolar Contrast (ICD-10-PCS; 2020-11-10)
DX: G45.9 Transient cerebral ischemic attack, unspecified (principal); E11.9 Type 2 diabetes mellitus without complications; E78.00 Pure hypercholesterolemia, unspecified; E78.5 Hyperlipidemia, unspecified; F17.210 Nicotine dependence, cigarettes, uncomplicated; I10 Essential (primary) hypertension; I25.10 Atherosclerotic heart disease of native coronary artery without angina pectoris; J44.9 Chronic obstructive pulmonary disease, unspecified; G43.909 Migraine, unspecified, not intractable, without status migrainosus; R00.1 Bradycardia, unspecified; T44.7X5A Adverse effect of beta-adrenoreceptor antagonists, initial encounter; K21.9 Gastro-esophageal reflux disease without esophagitis; I25.2 Old myocardial infarction; Z79.84 Long term (current) use of oral hypoglycemic drugs; Z79.02 Long term (current) use of antithrombotics/antiplatelets; Z95.5 Presence of coronary angioplasty implant and graft; Z88.6 Allergy status to analgesic agent; Z82.49 Family history of ischemic heart disease and other diseases of the circulatory system; Z79.899 Other long term (current) drug therapy; Z79.82 Long term (current) use of aspirin; Y92.89 Other specified places as the place of occurrence of the external cause
CPT/HCPCS: 36415; 70496; 70498; 80053; 81003; 82948; 83690; 83735; 84443; 84484; 85025; 85610; 93005; 99285; G0378; J0360; J1650; Q9967

== ENCOUNTER 2021-01-14 00:28 | Emergency (ER) | payer MEDICAID ==
[~2021-01-14] VITALS: Ht 167.6 cm; Wt 81.8 kg
[~2021-01-14 00:28] MED LIST changes: -CARV3.122 PO; +PANT-47 PO; -PANT40TA54 PO
[2021-01-14] MEDS ORDERED: HYDROcodone/acetaminophen 5mg/325mg tablet PO ONE (03:35)
[2021-01-14 03:56] LABS: BASOPHILS % (AUTO) 0.3 % (0-1); EOSINOPHILS # (AUTO) 0.1 X10'3 (0-0.9); HEMATOCRIT 39.6 % (35.0-45.0); HEMOGLOBIN 13.5 g/dl (12.0-16.0); LYMPHOCYTES # (AUTO) 1.6 X10'3 (1.1-4.8); LYMPHOCYTES % (AUTO) 24.7 % (21-51); MEAN CORPUSCULAR HEMOGLOBIN 28.9 PG (27.0-31.0); MEAN CORPUSCULAR HGB CONC 34.1 g/dL (33.0-36.5); MEAN CORPUSCULAR VOLUME 84.7 FL (78-98); MEAN PLATELET VOLUME 7.9 FL (7.4-10.4); MONOCYTES # (AUTO) 0.7 X10'3 (0-0.9); MONOCYTES % (AUTO) 11.1 % (2-12); NEUTROPHILS % (AUTO) 62.9 % (42-75); PLATELET COUNT 219 X10'3 (140-440); RED BLOOD COUNT 4.68 X10'6 (4.20-5.60); RED CELL DISTRIBUTION WIDTH 14.4 % (11.5-14.5); WHITE BLOOD COUNT 6.3 X10'3 (4.5-11.0)
[2021-01-14 04:09] LABS: ALANINE AMINOTRANSFERASE 36 U/L (12-78); ALBUMIN 3.6 G/DL (3.4-5.0); ALBUMIN/GLOBULIN RATIO 1.1 (1.1-1.5); ALKALINE PHOSPHATASE 70 IU/L (46-116); ANION GAP 11 (8-16); ASPARTATE AMINO TRANSFERASE 24 U/L (10-37); BILIRUBIN,TOTAL 0.3 MG/DL (0.1-1.0); BLOOD UREA NITROGEN 9 MG/DL (7-18); BUN/CREATININE RATIO 12.2 (6.6-38.0); CALCIUM 8.9 MG/DL (8.5-10.1); CHLORIDE 108 MMOL/L (99-107); CREATININE 0.74 MG/DL (0.40-0.90); GLUCOSE 119 MG/DL (70-104); POTASSIUM 3.6 MMOL/L (3.5-5.1); SODIUM 146 MMOL/L (135-145); TOTAL CARBON DIOXIDE 27.1 MMOL/L (24-32); TOTAL PROTEIN 6.9 G/DL (6.4-8.2); eGFR 75 ML/MIN
[2021-01-14 05:55] VITALS: BP 167/78
== END 2021-01-14 05:59 | disposition home or self-care (01) ==
LOC: ER 00:29
DX: I10 Essential (primary) hypertension (principal); R00.1 Bradycardia, unspecified; G43.909 Migraine, unspecified, not intractable, without status migrainosus; I25.10 Atherosclerotic heart disease of native coronary artery without angina pectoris; E78.00 Pure hypercholesterolemia, unspecified; I25.2 Old myocardial infarction; K21.9 Gastro-esophageal reflux disease without esophagitis; M19.90 Unspecified osteoarthritis, unspecified site; J44.9 Chronic obstructive pulmonary disease, unspecified; Z98.890 Other specified postprocedural states; Z88.8 Allergy status to other drugs, medicaments and biological substances; Z79.82 Long term (current) use of aspirin; Z79.899 Other long term (current) drug therapy
CPT/HCPCS: 36415; 71045; 80053; 84484; 85025; 93005; 99285

== ENCOUNTER 2021-10-31 14:39 | Inpatient (IN) | payer MEDICAID ==
[~2021-10-31] VITALS: Ht 165.1 cm; Wt 77.3 kg
[2021-10-31 15:58] LABS: BASOPHILS % (AUTO) 0.6 % (0-1); EOSINOPHILS % (AUTO) 0.6 % (0-6); HEMOGLOBIN 13.5 g/dl (12.0-16.0); LYMPHOCYTES # (AUTO) 1.5 X10'3 (1.1-4.8); LYMPHOCYTES % (AUTO) 22.4 % (21-51); MEAN CORPUSCULAR HEMOGLOBIN 28.1 PG (27.0-31.0); MEAN CORPUSCULAR HGB CONC 32.9 g/dL (33.0-36.5); MEAN CORPUSCULAR VOLUME 85.3 FL (78-98); MEAN PLATELET VOLUME 8.1 FL (7.4-10.4); MONOCYTES # (AUTO) 0.7 X10'3 (0-0.9); MONOCYTES % (AUTO) 10.5 % (2-12); NEUTROPHILS # (AUTO) 4.4 X10'3 (1.8-7.7); NEUTROPHILS % (AUTO) 65.9 % (42-75); PLATELET COUNT 250 X10'3 (140-440); RED CELL DISTRIBUTION WIDTH 14.4 % (11.5-14.5); WHITE BLOOD COUNT 6.6 X10'3 (4.5-11.0)
[2021-10-31 16:11] LABS: ALANINE AMINOTRANSFERASE 31 U/L (12-78); ALBUMIN/GLOBULIN RATIO 1.3 (1.1-1.5); ALKALINE PHOSPHATASE 119 IU/L (46-116); ANION GAP 7 (8-16); ASPARTATE AMINO TRANSFERASE 15 U/L (10-37); BILIRUBIN,TOTAL 0.3 MG/DL (0.1-1.0); BLOOD UREA NITROGEN 14 MG/DL (7-18); BUN/CREATININE RATIO 21.5 (6.6-38.0); CALCIUM 9.1 MG/DL (8.5-10.1); CHLORIDE 110 MMOL/L (99-107); CREATININE 0.65 MG/DL (0.40-0.90); GLUCOSE 118 MG/DL (70-104); POTASSIUM 4.4 MMOL/L (3.5-5.1); SODIUM 145 MMOL/L (135-145); TOTAL CARBON DIOXIDE 28.3 MMOL/L (24-32); TOTAL PROTEIN 7.2 G/DL (6.4-8.2); eGFR 87 ML/MIN
[2021-10-31] MEDS: aspirin 325mg tablet PO ONE ×2 (19:54→19:58)
[2021-10-31] MEDS ORDERED: aspirin 81mg tab.chew PO ONE (20:00)
[2021-10-31] MEDS ORDERED: temazepam 15mg capsule PO PRN (21:00)
[2021-10-31] MEDS ORDERED: acetaminophen 325mg tablet PO PRN ×2 (22:50)
[2021-10-31] MEDS ORDERED: regadenoson 0.4mg/5ml syringe IV PRN (22:50)
[2021-10-31] MEDS: normal saline 1000ml 1,000 ML IV SCH (22:50)
[2021-10-31] MEDS ORDERED: magnesium 2GM in 50ml NS 50 ML IV PRN (22:50)
[2021-10-31] MEDS ORDERED: ondansetron/PF 4mg/2ml inj IV PRN (22:50)
[2021-10-31] MEDS ORDERED: magnesium Cl slow-release 64mg tablet PO PRN (22:50)
[2021-10-31] MEDS ORDERED: nitroGLYCERIN 0.4mg SUBLingual tab SL PRN (22:50)
[2021-10-31] MEDS ORDERED: aminophylline 500mg/20ml vial IV PRN (22:50)
[2021-10-31] MEDS ORDERED: metoprolol tartrate 1mg/ml inj IV PRN (22:50)
[2021-10-31] MEDS ORDERED: HYDROcodone/acetaminophen 5mg/325mg tablet PO PRN (22:50)
[2021-10-31] MEDS ORDERED: magnesium 4gm in 100ml NS 100 ML IV PRN (22:50)
[2021-10-31] MEDS ORDERED: morphine 2 MG/ML inj. syringe IV PRN (22:50)
[2021-10-31] MEDS ORDERED: potassium CL 10mEq/100ml bag 100 ML IV PRN (22:50)
[2021-10-31] MEDS ORDERED: POTASSIUM BICARB 20meq eff tab 20 MEQ TABLET.EFF PO PRN ×2 (22:50)
[2021-10-31] MEDS ORDERED: glucagon, human recombinant 1mg kit SUBCUT PRN (23:00)
[2021-10-31] MEDS ORDERED: insulin Lispro (HumaLOG) vial - multi-dose SQ SCH (23:00)
[2021-10-31] MEDS ORDERED: dextrose 50%-water 50ml dispensing syringe IV PRN ×2 (23:00)
[2021-10-31] MEDS ORDERED: MESSAGE TO PHARMACY PO ONE (23:00)
[2021-10-31] MEDS ORDERED: DEXTROSE 15 GM of carb/4 tabs (each vial/BOTTLE has 4 tablets) PO PRN ×2 (23:00)
[2021-11-01] VITALS (7 sets, daily range): BP systolic 125–148; BP diastolic 52–87
[2021-11-01] MEDS ORDERED: ATOR-2 PO (02:36)
[2021-11-01] MEDS ORDERED: AMLO5TAB16 PO (02:36)
[2021-11-01] MEDS: normal saline 1000ml 1,000 ML IV SCH (03:30)
[2021-11-01 06:34] LABS: BASOPHILS % (AUTO) 0.5 % (0-1); EOSINOPHILS # (AUTO) 0.1 X10'3 (0-0.9); EOSINOPHILS % (AUTO) 1.7 % (0-6); HEMATOCRIT 37.9 % (35.0-45.0); HEMOGLOBIN 12.7 g/dl (12.0-16.0); LYMPHOCYTES # (AUTO) 1.7 X10'3 (1.1-4.8); LYMPHOCYTES % (AUTO) 29.7 % (21-51); MEAN CORPUSCULAR HEMOGLOBIN 28.5 PG (27.0-31.0); MEAN CORPUSCULAR HGB CONC 33.5 g/dL (33.0-36.5); MEAN CORPUSCULAR VOLUME 85.2 FL (78-98); MEAN PLATELET VOLUME 8.2 FL (7.4-10.4); MONOCYTES # (AUTO) 0.7 X10'3 (0-0.9); MONOCYTES % (AUTO) 12.1 % (2-12); NEUTROPHILS # (AUTO) 3.3 X10'3 (1.8-7.7); PLATELET COUNT 221 X10'3 (140-440); RED BLOOD COUNT 4.45 X10'6 (4.20-5.60); RED CELL DISTRIBUTION WIDTH 14.3 % (11.5-14.5); WHITE BLOOD COUNT 5.9 X10'3 (4.5-11.0)
[2021-11-01 06:49] LABS: ALANINE AMINOTRANSFERASE 27 U/L (12-78); ALBUMIN 3.3 G/DL (3.4-5.0); ALBUMIN/GLOBULIN RATIO 1.2 (1.1-1.5); ALKALINE PHOSPHATASE 97 IU/L (46-116); ANION GAP 8 (8-16); ASPARTATE AMINO TRANSFERASE 15 U/L (10-37); BILIRUBIN,TOTAL 0.3 MG/DL (0.1-1.0); BLOOD UREA NITROGEN 13 MG/DL (7-18); BUN/CREATININE RATIO 23.6 (6.6-38.0); CALCIUM 8.5 MG/DL (8.5-10.1); CHLORIDE 112 MMOL/L (99-107); CREATININE 0.55 MG/DL (0.40-0.90); GLUCOSE 106 MG/DL (70-104); POTASSIUM 3.9 MMOL/L (3.5-5.1); SODIUM 146 MMOL/L (135-145); eGFR > 90 ML/MIN
--- NOTE | 2021-11-01 07:14 | NUR ---
Problems reprioritized. Patient report given, questions answered & plan of care reviewed with Monica MORRIS. Addendum: 11/01/21 at 0715 by Wendi Gutierres RN Amended: Links added.
[2021-11-01] MEDS ORDERED: heparin, porcine 5000 units/ml vial SQ SCH (08:00)
[2021-11-01] MEDS ORDERED: K and/or MAG REPLACEMENT MC SCH (08:00)
--- NOTE | 2021-11-01 14:48 | NUR ---
Patient discharged home with daughter after eating lunch. Patient appears stable, no chest pain at this time. No new meds. IV taken out tele dc'd. All belongings taken from room. Patient and daughter state understanding of discharge instructions.
[2021-11-01] MEDS ORDERED: insulin glargine (Lantus) pen - multi-dose SQ SCH (21:00)
== END 2021-11-01 14:56 | disposition home or self-care (01) | DRG 198 ==
LOC: ER 14:41 → ED HOLD 22:56 → PCU 3S 11-01 03:00
PROVIDERS: ADMIT Internal Medicine; ATTEND Internal Medicine
PROC: 4A02XM4 Measurement of Cardiac Total Activity, External Approach (ICD-10-PCS; principal; 2021-11-01)
PROC: 3E033HZ Introduction of Radioactive Substance into Peripheral Vein, Percutaneous Approach (ICD-10-PCS; 2021-11-01)
DX: R07.89 Other chest pain (principal); I25.10 Atherosclerotic heart disease of native coronary artery without angina pectoris; E11.9 Type 2 diabetes mellitus without complications; K21.9 Gastro-esophageal reflux disease without esophagitis; G43.909 Migraine, unspecified, not intractable, without status migrainosus; E78.00 Pure hypercholesterolemia, unspecified; I10 Essential (primary) hypertension; J44.9 Chronic obstructive pulmonary disease, unspecified; M19.90 Unspecified osteoarthritis, unspecified site; I25.2 Old myocardial infarction; Z86.73 Personal history of transient ischemic attack (TIA), and cerebral infarction without residual deficits
CPT/HCPCS: 36415; 71045; 78452; 80053; 83880; 84484; 85025; 87081; 93017; 93306; 99285; A4615; A9500; G0378; J1815; J2785; J7030

== ENCOUNTER 2023-01-13 09:00 | Outpatient (CLI) | payer MEDICAID ==
[~2023-01-13] VITALS: Ht 162.6 cm; Wt 76.8 kg
[2023-01-13] VITALS (7 sets, daily range): BP systolic 116–135; BP diastolic 48–61; PULSE 56–69; RESP 14–16; O2SAT 98–100
[~2023-01-13 09:00] MED LIST changes: +AMLO5TAB16 PO; +ATOR-2 PO; -METF-436 PO; -METH-797 PO; -PRAV80TA3 PO; -SUMA25TA9 PO
[2023-01-13] MEDS ORDERED: regadenoson 0.4mg/5ml syringe IV ONE (10:20)
[2023-01-13] MEDS ORDERED: normal saline 500ml IV soln 500 ML IV ONE (10:55)
[2023-01-13] MEDS ORDERED: aminophylline 250mg/10ml inj. IV PRN (10:55)
[2023-01-13] MEDS ORDERED: nitroGLYCERIN 0.4mg SUBLingual tab SL PRN (10:55)
== END 2023-01-13 23:59 | disposition home or self-care (01) ==
LOC: RAD 09:00
PROVIDERS: ATTEND Internal Medicine Cardiovascular Disease
DX: I25.10 Atherosclerotic heart disease of native coronary artery without angina pectoris (principal)
CPT/HCPCS: 78452; 93017; A9500; J2785; J7040

== ENCOUNTER 2023-01-29 23:46 | Emergency (ER) | payer MEDICAID ==
[~2023-01-29] VITALS: Ht 162.6 cm; Wt 80.1 kg
--- NOTE | 2023-01-30 00:23 | NUR ---
DURING EKG, PT HAVING MULTIPLE RUNS OF VTACH AND FELT PALPITATIONS DURING IT. UNABLE TO CAPTURE IMAGE ON PORTABLE 12 LEAD EKG MACHINE DUE TO [address] MCALLISTER NOTIFIED.
[2023-01-30 00:42] LABS: BASOPHILS % (AUTO) 0.3 % (0-1); EOSINOPHILS # (AUTO) 0.1 X10'3 (0-0.9); EOSINOPHILS % (AUTO) 1.2 % (0-6); HEMATOCRIT 41.5 % (35.0-45.0); HEMOGLOBIN 14.4 g/dl (12.0-16.0); LYMPHOCYTES # (AUTO) 2.2 X10'3 (1.1-4.8); LYMPHOCYTES % (AUTO) 37.7 % (21-51); MEAN CORPUSCULAR HEMOGLOBIN 29.5 PG (27.0-31.0); MEAN CORPUSCULAR HGB CONC 34.7 g/dL (33.0-36.5); MEAN CORPUSCULAR VOLUME 85.1 FL (78-98); MEAN PLATELET VOLUME 7.7 FL (7.4-10.4); MONOCYTES # (AUTO) 0.6 X10'3 (0-0.9); MONOCYTES % (AUTO) 11.2 % (2-12); NEUTROPHILS # (AUTO) 2.9 X10'3 (1.8-7.7); NEUTROPHILS % (AUTO) 49.6 % (42-75); PLATELET COUNT 251 X10'3 (140-440); RED BLOOD COUNT 4.88 X10'6 (4.20-5.60); RED CELL DISTRIBUTION WIDTH 14.8 % (11.5-14.5); WHITE BLOOD COUNT 5.8 X10'3 (4.5-11.0)
[2023-01-30 00:55] LABS: ALANINE AMINOTRANSFERASE 24 U/L (12-78); ALBUMIN 3.8 G/DL (3.4-5.0); ALBUMIN/GLOBULIN RATIO 1.1 (1.1-1.5); ALKALINE PHOSPHATASE 105 IU/L (46-116); ANION GAP 8 (8-16); ASPARTATE AMINO TRANSFERASE 28 U/L (10-37); BILIRUBIN,TOTAL 0.3 MG/DL (0.1-1.0); BLOOD UREA NITROGEN 20 MG/DL (7-18); BUN/CREATININE RATIO 24.4 (10.0-20.0); CALCIUM 9.4 MG/DL (8.5-10.1); CHLORIDE 104 MMOL/L (99-107); CREATININE 0.82 MG/DL (0.40-0.90); GLUCOSE 86 MG/DL (70-104); POTASSIUM 4.1 MMOL/L (3.5-5.1); SODIUM 139 MMOL/L (135-145); TOTAL CARBON DIOXIDE 27.4 MMOL/L (24-32); TOTAL PROTEIN 7.4 G/DL (6.4-8.2); eCRCL 43 ML/MIN; eGFR 66 ML/MIN
[2023-01-30 01:02] LABS: PRO BRAIN NATRIURETIC PEPTIDE 67 PG/ML (0-450)
[2023-01-30 04:45] VITALS: BP 120/63; PULSE 54; RESP 13; O2SAT 93
== END 2023-01-30 06:15 | disposition home or self-care (01) ==
LOC: ER 23:47
DX: R00.2 Palpitations (principal); I10 Essential (primary) hypertension; G43.909 Migraine, unspecified, not intractable, without status migrainosus; I25.10 Atherosclerotic heart disease of native coronary artery without angina pectoris; E78.00 Pure hypercholesterolemia, unspecified; I25.2 Old myocardial infarction; J44.9 Chronic obstructive pulmonary disease, unspecified; K21.9 Gastro-esophageal reflux disease without esophagitis; M19.90 Unspecified osteoarthritis, unspecified site; Z98.890 Other specified postprocedural states; Z88.6 Allergy status to analgesic agent; Z79.82 Long term (current) use of aspirin; Z79.899 Other long term (current) drug therapy
CPT/HCPCS: 36415; 71045; 80053; 83880; 84484; 85025; 93005; 99285

== ENCOUNTER 2023-06-04 12:21 | Emergency (ER) | payer MEDICAID ==
[~2023-06-04] VITALS: Ht 162.6 cm; Wt 81.4 kg
[2023-06-04 12:37] VITALS: TEMP 98.6
[2023-06-04 12:46] LABS: BASOPHILS % (AUTO) 0.6 % (0-1); EOSINOPHILS % (AUTO) 0.6 % (0-6); HEMATOCRIT 46.9 % (35.0-45.0); HEMOGLOBIN 15.6 g/dl (12.0-16.0); LYMPHOCYTES # (AUTO) 1.7 X10'3 (1.1-4.8); LYMPHOCYTES % (AUTO) 21.6 % (21-51); MEAN CORPUSCULAR HEMOGLOBIN 28.4 PG (27.0-31.0); MEAN CORPUSCULAR HGB CONC 33.3 g/dL (33.0-36.5); MEAN CORPUSCULAR VOLUME 85.3 FL (78-98); MEAN PLATELET VOLUME 7.9 FL (7.4-10.4); MONOCYTES # (AUTO) 0.8 X10'3 (0-0.9); MONOCYTES % (AUTO) 10.6 % (2-12); NEUTROPHILS # (AUTO) 5.1 X10'3 (1.8-7.7); NEUTROPHILS % (AUTO) 66.6 % (42-75); PLATELET COUNT 257 X10'3 (140-440); RED CELL DISTRIBUTION WIDTH 14.2 % (11.5-14.5); WHITE BLOOD COUNT 7.7 X10'3 (4.5-11.0)
[2023-06-04 13:02] LABS: ALANINE AMINOTRANSFERASE 26 U/L (12-78); ALBUMIN 3.7 G/DL (3.4-5.0); ALKALINE PHOSPHATASE 87 IU/L (46-116); ANION GAP 12 (8-16); ASPARTATE AMINO TRANSFERASE 18 U/L (10-37); BILIRUBIN,TOTAL 0.3 MG/DL (0.1-1.0); BLOOD UREA NITROGEN 14 MG/DL (7-18); BUN/CREATININE RATIO 17.9 (10.0-20.0); CALCIUM 9.7 MG/DL (8.5-10.1); CHLORIDE 106 MMOL/L (99-107); CREATININE 0.78 MG/DL (0.40-0.90); GLUCOSE 154 MG/DL (70-104); POTASSIUM 3.8 MMOL/L (3.5-5.1); SODIUM 141 MMOL/L (135-145); TOTAL CARBON DIOXIDE 23.2 MMOL/L (24-32); TOTAL PROTEIN 7.5 G/DL (6.4-8.2); eCRCL 46 ML/MIN; eGFR 70 ML/MIN
[2023-06-04 15:10] VITALS: RESP 20; O2SAT 95
[2023-06-04 16:10] VITALS: BP 157/72; PULSE 68
[2023-06-04 17:48] LABS: BILIRUBIN,URINE NEGATIVE (Neg); CLARITY,URINE CLEAR (Clear); COLOR,URINE YELLOW (Yellow); GLUCOSE, URINE NEGATIVE (Neg); KETONES,URINE NEGATIVE (Neg); LEUKOCYTE ESTERASE ,URINE NEGATIVE (Neg); NITRITES, URINE NEGATIVE (Neg); OCCULT BLOOD,URINE NEGATIVE (Neg); PROTEIN,URINE NEGATIVE (Neg); UROBILINOGEN,URINE 0.2 E.U/dL (0.2-1.0)
[2023-06-04 17:59] LABS: UA COLLECTION TYPE VOIDED
== END 2023-06-04 18:42 | disposition home or self-care (01) ==
LOC: ER 12:22
DX: G43.909 Migraine, unspecified, not intractable, without status migrainosus (principal); R35.0 Frequency of micturition; R42 Dizziness and giddiness; I10 Essential (primary) hypertension; I25.10 Atherosclerotic heart disease of native coronary artery without angina pectoris; E78.00 Pure hypercholesterolemia, unspecified; J44.9 Chronic obstructive pulmonary disease, unspecified; Z88.8 Allergy status to other drugs, medicaments and biological substances; Z79.899 Other long term (current) drug therapy; Z79.82 Long term (current) use of aspirin
CPT/HCPCS: 36415; 71045; 80053; 81003; 84484; 85025; 93005; 99285

== ENCOUNTER 2024-05-12 08:53 | Outpatient (CLI) | payer MEDICAID ==
[~2024-05-12] VITALS: Ht 162.6 cm; Wt 80.3 kg
[2024-05-12] VITALS (7 sets, daily range): BP systolic 98–133; BP diastolic 44–52; PULSE 57–67; RESP 16; O2SAT 92–97
[2024-05-12] MEDS ORDERED: nitroGLYCERIN 0.4mg SUBLingual tab SL PRN (09:50)
[2024-05-12] MEDS ORDERED: aminophylline 500mg/20ml vial IV ONE (09:50)
[2024-05-12] MEDS ORDERED: normal saline 1000ml 1,000 ML IV SCH (09:55)
[2024-05-12] MEDS: regadenoson 0.4mg/5ml syringe IV ONE (10:36)
== END 2024-05-12 23:59 | disposition home or self-care (01) ==
LOC: NM 08:53
PROVIDERS: ATTEND Internal Medicine Cardiovascular Disease
DX: I25.119 Atherosclerotic heart disease of native coronary artery with unspecified angina pectoris (principal); R06.00 Dyspnea, unspecified; R07.89 Other chest pain; R53.83 Other fatigue
CPT/HCPCS: 78452; 93017; A9500; J2785; J7030; J0280

== ENCOUNTER 2024-06-02 03:14 | Emergency (ER) | payer MEDICAID ==
[~2024-06-02] VITALS: Ht 162.6 cm; Wt 81.0 kg
[2024-06-02 03:35] LABS: BASOPHILS % (AUTO) 0.7 % (0-1); EOSINOPHILS % (AUTO) 1.1 % (0-6); HEMATOCRIT 35.7 % (35.0-45.0); HEMOGLOBIN 12.2 g/dl (12.0-16.0); LYMPHOCYTES # (AUTO) 1.5 X10'3 (1.1-4.8); LYMPHOCYTES % (AUTO) 61.4 % (21-51); MEAN CORPUSCULAR HGB CONC 34.2 g/dL (33.0-36.5); MEAN CORPUSCULAR VOLUME 93.6 FL (78-98); MEAN PLATELET VOLUME 7.1 FL (7.4-10.4); MONOCYTES # (AUTO) 0.2 X10'3 (0-0.9); MONOCYTES % (AUTO) 6.4 % (2-12); NEUTROPHILS # (AUTO) 0.7 X10'3 (1.8-7.7); NEUTROPHILS % (AUTO) 30.4 % (42-75); PLATELET COUNT 103 X10'3 (140-440); RED BLOOD COUNT 3.82 X10'6 (4.20-5.60); RED CELL DISTRIBUTION WIDTH 16.3 % (11.5-14.5); WHITE BLOOD COUNT 2.4 X10'3 (4.5-11.0)
[2024-06-02] MEDS ORDERED: ROSU10TA72 PO (03:42)
[2024-06-02 03:50] LABS: ALANINE AMINOTRANSFERASE 25 U/L (12-78); ALBUMIN 3.4 G/DL (3.4-5.0); ALBUMIN/GLOBULIN RATIO 1.3 (1.1-1.5); ALKALINE PHOSPHATASE 70 IU/L (46-116); ANION GAP 7 (8-16); ASPARTATE AMINO TRANSFERASE 20 U/L (10-37); BILIRUBIN,TOTAL 0.3 MG/DL (0.1-1.0); BLOOD UREA NITROGEN 16 MG/DL (7-18); BUN/CREATININE RATIO 29.6 (10.0-20.0); CALCIUM 8.6 MG/DL (8.5-10.1); CHLORIDE 109 MMOL/L (99-107); CREATININE 0.54 MG/DL (0.40-0.90); GLUCOSE 139 MG/DL (70-104); POTASSIUM 3.9 MMOL/L (3.5-5.1); SODIUM 142 MMOL/L (135-145); TOTAL CARBON DIOXIDE 26.1 MMOL/L (24-32); TOTAL PROTEIN 6.1 G/DL (6.4-8.2); eCRCL 65 ML/MIN; eGFR > 90 ML/MIN
[2024-06-02 03:58] LABS: PRO BRAIN NATRIURETIC PEPTIDE 137 PG/ML (0-450)
[2024-06-02 04:00] LABS: ANISOCYTOSIS 1+; TOTAL CELLS COUNTED 100
[2024-06-02] MEDS: acetaminophen 1,000mg/100ml IV 100 ML IV ONE (04:04)
[2024-06-02 06:49] VITALS: BP 138/81; PULSE 49; RESP 15; O2SAT 94
[2024-06-02 07:27] VITALS: TEMP 98
== END 2024-06-02 07:30 | disposition home or self-care (01) ==
LOC: ER 03:14
DX: R07.89 Other chest pain (principal); R00.2 Palpitations; I10 Essential (primary) hypertension; E78.00 Pure hypercholesterolemia, unspecified; I25.10 Atherosclerotic heart disease of native coronary artery without angina pectoris; I25.2 Old myocardial infarction; J44.9 Chronic obstructive pulmonary disease, unspecified; M19.90 Unspecified osteoarthritis, unspecified site; K21.9 Gastro-esophageal reflux disease without esophagitis; G43.909 Migraine, unspecified, not intractable, without status migrainosus; Z88.6 Allergy status to analgesic agent; Z79.82 Long term (current) use of aspirin; Z79.52 Long term (current) use of systemic steroids; Z79.899 Other long term (current) drug therapy; Z98.890 Other specified postprocedural states
CPT/HCPCS: 36415; 71045; 80053; 83880; 84484; 85007; 85025; 93005; 96365; 99285; J0131

== ENCOUNTER 2024-08-01 10:29 | Emergency (ER) | payer MEDICAID ==
[~2024-08-01] VITALS: Ht 157.5 cm; Wt 86.4 kg
--- NOTE | 2024-08-01 10:37 | ELECTROCARDIOGRAPH REPORT ---
[facility] Test Date: 2024-08-01 Test Time: 10:33:18 Pat Name: MOODY CLARK Department: EMERGENCY ROOM Room: Gender: F Anaesthetic Technician: KEILA : 1935 Requested By: KASI PHILLIPS Order Number: [id number] Reading MD: Dr. Travis Morales Measurements Intervals [place] Rate: 64 P: 43 [place]: 183 QRS: 4 QRSD: 96 T: 8 QT: 435 QTc: 449 Interpretive Statements Sinus rhythm Low voltage, precordial leads Posterior infarct, old Electronically Signed On 08-03-2024 6:35:[address] Travis Morales Please click the below link to view image of tracing.
[2024-08-01 10:45] VITALS: TEMP 98.1
--- NOTE | 2024-08-01 11:12 | RADIOLOGY REPORT ---
EXAM: DI CHEST,SINGLE VIEW Indication: CP Technique: Single frontal view of the chest was obtained Comparison: DI CHEST,SINGLE VIEW on DOS: 06/02/24, DI CHEST,SINGLE VIEW on DOS: 06/04/23, DI CHEST,SINGLE VIEW on DOS: 01/30/23, CHEST,SINGLE VIEW on DOS: 10/31/21, CHEST,SINGLE VIEW on DOS: 01/14/21 FINDINGS: Lines and Tubes: None Lungs: No focal consolidation. Pleura: No effusion. No pneumothorax. Cardiomediastinal contours: Unremarkable. Atherosclerotic vascular calcifications of the thoracic ao rta are noted. Bones: No acute osseous abnormality. IMPRESSION: No acute cardiopulmonary disease.
[2024-08-01 11:13] LABS: BASOPHILS % (AUTO) 0.2 % (0-1); EOSINOPHILS % (AUTO) 0.3 % (0-6); HEMOGLOBIN 11.6 g/dl (12.0-16.0); LYMPHOCYTES # (AUTO) 0.9 X10'3 (1.1-4.8); LYMPHOCYTES % (AUTO) 40.5 % (21-51); MEAN CORPUSCULAR HEMOGLOBIN 32.1 PG (27.0-31.0); MEAN CORPUSCULAR VOLUME 94.3 FL (78-98); MEAN PLATELET VOLUME 7.4 FL (7.4-10.4); MONOCYTES # (AUTO) 0.1 X10'3 (0-0.9); MONOCYTES % (AUTO) 3.9 % (2-12); NEUTROPHILS # (AUTO) 1.3 X10'3 (1.8-7.7); NEUTROPHILS % (AUTO) 55.1 % (42-75); PLATELET COUNT 72 X10'3 (140-440); RED BLOOD COUNT 3.61 X10'6 (4.20-5.60); RED CELL DISTRIBUTION WIDTH 16.6 % (11.5-14.5); WHITE BLOOD COUNT 2.3 X10'3 (4.5-11.0)
--- NOTE | 2024-08-01 11:19 | Physician Documentation ---
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 Lion. She reported couple of episodes of vomiting, low blood pressure and low heart rate(informed patient's daughter by OR nurse). Endorses palpitations, reduced irregular nature. She denied abdominal pain, abdominal distention, and dizziness, weakness of limbs, or deviation of angle of mouth. She endorses using clopidogrel, lisinopril, rosuvastatin, levothyroxine& tobramycin eyedrops. Patient underwent right eye cataract surgery two weeks back but she did get this kind of symptoms at that time. Medication Reconciliation Allergies: Coded Allergies: No Known Drug Allergies (Verified Allergy, Unknown, 06/02/24) aspirin (Verified Adverse Reaction, Mild, SEE COMMENT, 01/30/23) Per daughter pt has a sensitive stomach and does not tolerate uncoated pills well, can take enteric coated. Scheduled Amlodipine Besylate (Amlodipine Besylate), 1 TAB PO DAILY, (Reported) Aspirin (Aspirin EC), 1 TAB PO DAILY, (Reported) Atorvastatin Calcium (Atorvastatin Calcium), 1 TAB PO DAILY, (Reported) Calcium Carbonate (Oyster Shell Calcium), 1 TAB PO BID, (Reported) Capsaicin 60GM Cream* (Zostrix Cream*), 1 APPLIC TOP TID, (Reported) Clopidogrel Bisulfate (Plavix), 1 TAB PO DAILY, (Reported) Fluticasone Propionate (24 Hour Allergy Relief), 2 SPR NA DAILY, (Reported) Levothyroxine Sodium (Levothyroxine Sodium), 1 TAB PO DAILY, (Reported) Lisinopril* (Lisinopril*), 1 TAB PO DAILY, (Reported) Loratadine (Loratadine), 1 TAB PO DAILY, (Reported) Pantoprazole Sodium (PROTONIX tablet), 1 TAB PO BID, (Reported) Past Medical History Past Medical History: Migraine, Vertigo, Coronary Artery Disease, High Cholesterol, Hypertension, Myocardial Infarction, COPD, GERD, Arthritis Past Surgical History: orthopedic surgeries Patient History: FH: hypertension Brother FH: kidney disease Maternal grandmother Alcohol Use: None Drug Use: none Lives with: Family Lives In: Home Occupation: retired Review of Systems All Other Systems at this time: Reviewed and Negative ROS Reviewed in full and negative except positive pertinent in hpi Physical Exam Vital Signs: Temperature: 97.9, Source: Oral, Heart Rate: 65, Respiratory Rate: 14, BP: 124/74, Pulse Oximetry: 97, Weight: 86.360 Oxygen Flow Rate: 0 Physical Exam Awake , alert, and oriented x4, resting comfortably in the bed, in no acute distress HEENT: Atraumatic, normocephalic, EOMI, anicteric sclera ; pink conjunctiva Neck: Trachea midline. Supple, full range of motion, no JVD Cardiac: Regular rhythm, regular rate with systolic murmurs all over the precordium. Respiratory: Equal breath sounds bilaterally, no tachypnea, no wheezing ,rub or rales, Chest wall is symmetric and without deformity. Bilateral occasional mild crepitations present. Gastrointestinal: Abdomen symmetric, non-distended, soft, non-tender, normal bowel sounds x4 quadrant, normoactive, no hepatosplenomegaly Musculoskeletal: No cyanosis, pedal edema, Clubbing, Neurological: Speech is clear, alert, and oriented x 4. No motor or sensory deficit, deep tendon reflexes normal, cerebellar intact. Cranial nerves II-XII intact. Skin: Warm and dry. Progress Results/Orders Results/Orders Orders - KASI ALVAREZ MD Chest,Single View (08/01/24 10:35) Monitor (08/01/24 10:35) Saline Lock (08/01/24 10:35) Oxygen (08/01/24 10:35) Hs Troponin I W Calculations (08/01/24 13:35) Completed Orders - KASI ALVAREZ MD Chest,Single View (08/01/24 10:35) Cbc/Diff (08/01/24 10:35) PBNP (08/01/24 10:35) Electrocardiogram (08/01/24 10:35) Hs Troponin I W Calculations (08/01/24 10:35) Hs Troponin I W Calculations (08/01/24 12:35) Man Diff (08/01/24 10:47) CMP (08/01/24 10:47) Urinalysis (08/01/24 13:08) Medications Received in ER Medications (Trade) Dose Ordered Sig/Geno Route PRN Reason Start Time Stop Time Status Last Admin Dose Admin Sodium Chloride 500 ml @ 500 mls/hr ONCE ONCE IV 08/01/24 11:15 08/01/24 12:14 DC 08/01/24 11:52 500 MLS/HR Vital Signs 08/01/24 08/01/24 08/01/24 08/01/24 10:40 10:45 10:55 10:58 Temp 97.9 98.1 Pulse 65 65 Resp 15 10 14 B/P (MAP) 124/74 124/74 (91) Pulse Ox 95 96 97 O2 Delivery Room Air* O2 Flow Rate 0 FiO2 N/A 08/01/24 08/01/24 08/01/24 11:15 11:45 12:15 Pulse 51 51 52 Resp 16 17 14 B/P (MAP) 117/63 (81) 119/59 (79) 119/55 (76) Pulse Ox 94 96 95 Laboratory Tests Test 08/01/24 10:47 08/01/24 12:04 08/01/24 12:46 White Blood Count 2.3 L Red Blood Count 3.61 L Hemoglobin 11.6 L Hematocrit 34.0 L Mean Corpuscular Volume 94.3 Mean Corpuscular Hemoglobin 32.1 H Mean Corpuscular Hemoglobin Concent 34.0 Red Cell Distribution Width 16.6 H Platelet Count 72 L Mean Platelet Volume 7.4 Neutrophils (%) (Auto) 55.1 Lymphocytes (%) (Auto) 40.5 Monocytes (%) (Auto) 3.9 Eosinophils (%) (Auto) 0.3 Basophils (%) (Auto) 0.2 Neutrophils # (Auto) 1.3 L Lymphocytes # (Auto) 0.9 L Monocytes # (Auto) 0.1 Eosinophils # (Auto) 0.0 Basophils # (Auto) 0.0 CBC Comment Differential Total Cells Counted 100 Neutrophils % (Manual) 50.0 Lymphocytes % (Manual) 42.0 Monocytes % (Manual) 8.0 Platelet Estimate Decreased Red Blood Cell Morphology Perf Basophilic Stippling Anisocytosis 1+ Sodium Level 143 Potassium Level 4.3 Chloride Level 108 H Carbon Dioxide Level 28.2 Anion Gap 7 L Blood Urea Nitrogen 13 Creatinine 0.61 Estimated GFR/1.73 m2 > 90 BUN/Creatinine Ratio 21.3 H Glucose Level 156 H Calcium Level 8.4 L Total Bilirubin 0.5 Aspartate Amino Transf (AST/SGOT) 20 Alanine Aminotransferase (ALT/SGPT) 38 Alkaline Phosphatase 75 Troponin I High Sensitivity 5 5 Pro-B-Type Natriuretic Peptide 59 Total Protein 6.5 Albumin 3.3 L Globulin 3.2 Albumin/Globulin Ratio 1.0 L Chemistry Comments Urine Specimen Description Cln catch midstream Urine Color Yellow Urine Clarity Clear Urine pH 6.0 Urine Specific [place] 1.020 Urine Protein Negative Urine Glucose (UA) Negative Urine Ketones Negative Urine Occult Blood Negative Urine Nitrite Negative Urine Bilirubin Negative Urine Urobilinogen 1.0 Urine Leukocyte Esterase Negative Volume Urine Centrifuged 10 ml Urine Comment Troponin I High Sens Percent Delta 0 Troponin I Hi Sens Absolute Change 0 Medical Decision Making Findings Patient is here for nausea and vomiting and bradycardia and hypotension. But telemetry has not showed any AV block and IN changes. Evaluated at the CBC, EKG, CMP. WBC counts are reduced. Received Zofran and IV normal saline she is improving . Likely to be sent to home entered Dr. Alvarez August 01, 2024 at 1441 EKG as interpreted by me shows a sinus rhythm at 64 beats per minute axis is normal intervals are normal poor R-wave progression but no ST elevation or depression. Patient is here for vomiting after her procedure today. Likely related anesthetic she has been in the ED for about 5 hours he was given IV fluids and antiemetics. Her symptoms have subsided her workup is reassuring patient was discharged. Her nausea was likely related to the anesthetic. Departure Disposition: HOME / SELF CARE / HOMELESS Impression: Primary Impression: Vomiting Qualified Codes: R11.10 - Vomiting, unspecified Condition: Stable Discharge Instructions: Nausea and Vomiting, Adult Referrals: NO PRIMARY CARE PROVIDER (PCP) Education Educated: Patient, Family Educated regarding: diagnosis, treatment, prognosis, need for follow up Signature Scribe Signature: The note accurately reflects work and decisions made by me.Joe Parnell - Resident 08/01/24 13:28 Attestation: The note accurately reflects work and decisions made by me.Joe Parnell - Resident 08/01/24 13:28 JOE PARNELL, AISHWARYA Aug 01, 2024 11:19 KASI ALVAREZ MD Aug 01, 2024 14:43
[2024-08-01] MEDS: diphenhydrAMINE 50 mg/ml inj IM ONE (11:27)
[2024-08-01] MEDS: proCHLORperazine 10 MG/2 ml inj IV ONE (11:28)
[2024-08-01 11:35] LABS: ALANINE AMINOTRANSFERASE 38 U/L (12-78); ALBUMIN 3.3 G/DL (3.4-5.0); ALKALINE PHOSPHATASE 75 IU/L (46-116); ANION GAP 7 (8-16); ASPARTATE AMINO TRANSFERASE 20 U/L (10-37); BILIRUBIN,TOTAL 0.5 MG/DL (0.1-1.0); BLOOD UREA NITROGEN 13 MG/DL (7-18); BUN/CREATININE RATIO 21.3 (10.0-20.0); CALCIUM 8.4 MG/DL (8.5-10.1); CHLORIDE 108 MMOL/L (99-107); CREATININE 0.61 MG/DL (0.40-0.90); GLUCOSE 156 MG/DL (70-104); POTASSIUM 4.3 MMOL/L (3.5-5.1); SODIUM 143 MMOL/L (135-145); TOTAL CARBON DIOXIDE 28.2 MMOL/L (24-32); TOTAL PROTEIN 6.5 G/DL (6.4-8.2); eCRCL 52 ML/MIN; eGFR > 90 ML/MIN
[2024-08-01] MEDS: normal saline 500ml IV soln 500 ML IV ONE (11:52)
[2024-08-01 12:02] LABS: PRO BRAIN NATRIURETIC PEPTIDE 59 PG/ML (0-450)
[2024-08-01 12:05] LABS: TOTAL CELLS COUNTED 100
[2024-08-01 12:06] LABS: ANISOCYTOSIS 1+; PLATELET ESTIMATE DECREASED
[2024-08-01 12:15] VITALS: BP 119/55; PULSE 52; RESP 14; O2SAT 95
[2024-08-01 13:27] LABS: BILIRUBIN,URINE NEGATIVE (Neg); CLARITY,URINE CLEAR (Clear); COLOR,URINE YELLOW (Yellow); GLUCOSE, URINE NEGATIVE (Neg); KETONES,URINE NEGATIVE (Neg); LEUKOCYTE ESTERASE ,URINE NEGATIVE (Neg); NITRITES, URINE NEGATIVE (Neg); OCCULT BLOOD,URINE NEGATIVE (Neg); PROTEIN,URINE NEGATIVE (Neg)
[2024-08-01 13:28] LABS: UA COLLECTION TYPE CLN CATCH MIDSTREAM
== END 2024-08-01 15:01 | disposition home or self-care (01) ==
LOC: ER 10:30
DX: R11.2 Nausea with vomiting, unspecified (principal); R00.2 Palpitations; I25.10 Atherosclerotic heart disease of native coronary artery without angina pectoris; E78.00 Pure hypercholesterolemia, unspecified; I10 Essential (primary) hypertension; I25.2 Old myocardial infarction; M19.90 Unspecified osteoarthritis, unspecified site; J44.9 Chronic obstructive pulmonary disease, unspecified; G43.909 Migraine, unspecified, not intractable, without status migrainosus; K21.9 Gastro-esophageal reflux disease without esophagitis; Z95.5 Presence of coronary angioplasty implant and graft; Z88.6 Allergy status to analgesic agent; Z79.899 Other long term (current) drug therapy; Z79.82 Long term (current) use of aspirin
CPT/HCPCS: 36415; 71045; 80053; 81003; 83880; 84484; 85007; 85025; 93005; 96360; 96361; 99285; J7040

== ENCOUNTER 2024-12-21 12:24 | Outpatient (CLI) | payer MEDICAID ==
[~2024-12-21 12:24] MED LIST changes: -LISI40TA13 PO; +LISI40TA20 PO
--- NOTE | 2024-12-21 14:24 | RADIOLOGY REPORT ---
INDICATION: UNSPECIFIED DISORDER OF NOSE AND NASAL SINUSES EXAM DATE: 12/21/2024 12:42 PM COMPARISON: CT HEAD on DOS: 05/10/20, CT HEAD on DOS: 10/05/19 TECHNIQUE: CT of the sinuses without intravenous contrast. RADIATION DOSE: CTDIvol: 54.5 mGy, DLP: 769.6 mGy*cm FINDINGS: The frontal sinuses are clear. The ethmoid air cells are clear bilaterally. Mild mucosal opacification of the bilateral maxillary sinuses. The sphenoid sinuses are clear. The ostiomeatal unit complexes appear patent bilaterally. The cribriform plate and lamina papyracea appear grossly intact. No abnormality of the orbits or globes is identified. The visualized brain is unremarkable. The surrounding soft tissues and osseous structures are unremarkable. IMPRESSION: Mild mucosal opacification of the bilateral maxillary sinuses.
== END 2024-12-21 23:59 | disposition home or self-care (01) ==
LOC: RAD 12:24
PROVIDERS: ATTEND Physician Assistant Medical
DX: J32.0 Chronic maxillary sinusitis (principal); J34.9 Unspecified disorder of nose and nasal sinuses
CPT/HCPCS: 70486

== ENCOUNTER 2025-01-05 14:29 | Inpatient (IN) | payer MEDICAID ==
[~2025-01-05] VITALS: Ht 165.1 cm; Wt 75.4 kg
--- NOTE | 2025-01-05 14:45 | Physician Documentation ---
History of Present Illness Stated Complaint: COUGH Primary Medical Doctor: NONE HPI MSE: Is a very pleasant 89-year-old female Albanian-speaking that presents to the emergency department for evaluation of dizziness cough weakness sleeplessness times 2-3 weeks. Patient reports that she was seen at her primary care provider's office last week they told her that she was anemic and had a low red blood cell count at that time. Patient also reports that she was seen by another doctor sometime during the last 2 weeks he reported that he wanted her to have a CT of her chest done due to findings some pulmonary abnormalities possibly nodules per the patient's daughter. Patient's daughter reports that they have scheduled the CT but does not in until April and she believes that her mother's worsening since that time. Patient demonstrates congestion rhinorrhea general discomfort and cough here in triage. Medication Reconciliation Allergies: Coded Allergies: aspirin (Verified Adverse Reaction, Mild, SEE COMMENT, 01/30/23) Per daughter pt has a sensitive stomach and does not tolerate uncoated pills well, can take enteric coated. Scheduled Amlodipine Besylate (Amlodipine Besylate), 1 TAB PO DAILY, (Reported) Aspirin (Aspirin EC), 1 TAB PO DAILY, (Reported) Atorvastatin Calcium (Atorvastatin Calcium), 1 TAB PO DAILY, (Reported) Calcium Carbonate (Oyster Shell Calcium), 1 TAB PO BID, (Reported) Capsaicin 60GM Cream* (Zostrix Cream*), 1 APPLIC TOP TID, (Reported) Clopidogrel Bisulfate (Plavix), 1 TAB PO DAILY, (Reported) Fluticasone Propionate (24 Hour Allergy Relief), 2 SPR NA DAILY, (Reported) Levothyroxine Sodium (Levothyroxine Sodium), 1 TAB PO DAILY, (Reported) Lisinopril* (Lisinopril*), 1 TAB PO DAILY, (Reported) Loratadine (Loratadine), 1 TAB PO DAILY, (Reported) Pantoprazole Sodium (PROTONIX tablet), 1 TAB PO BID, (Reported) Past Medical History Past Medical History: Migraine, Vertigo, Coronary Artery Disease, High Cholesterol, Hypertension, Myocardial Infarction, COPD, GERD, Arthritis Past Surgical History: orthopedic surgeries Patient History: FH: hypertension Brother FH: kidney disease Maternal grandmother Alcohol Use: None Drug Use: none Lives with: Family Lives In: Home Occupation: retired Review of Systems All Other Systems at this time: Reviewed and Negative Physical Exam Vital Signs: RN Vital Signs have been reviewed: Yes Physical Exam General: Alert, no apparent distress. Respiratory: Lungs clear, no respiratory distress. Cardiovascular: Regular rate and rhythm, no murmurs. Gastrointestinal: Soft, NT, nondistended. Bowels sounds present. Extremities: Normal range of motion, no deformity. Neurologic: Oriented x4. Psychiatric: Normal mood and affect. Skin: Normal color, warm and dry. No edema, no ecchymosis. Medical Decision Making Additional information obtaine: family Findings 89 year old female as above with cough, anemia, requiring small amount of oxygen by NC which is not baseline for her. Workup demonstrated bilateral lower lobe insterstitial lung process and pancytopenia. Provided antibiotic to cover atypical lung infection and care transferred to hospitalist. Differential Dx:Considerations: Other Additional Comments Ddx = pulmonary edema, pna, interstitial lung disease, viral URI, pulmonary fibrosis Departure Disposition: 09 ADMITTED INPATIENT Admitted to Inpatient Unit: to hospitalist Admission Level of Care: Med/Surg Impression: Primary Impression: Hypoxia Additional Impression: Interstitial lung abnormality (SHI) Condition: Stable Referrals: NO PRIMARY CARE PROVIDER (PCP) Education Educated: Patient Educated regarding: diagnosis, treatment, prognosis, need for follow up Signature Scribe Signature: . Attestation: . EDILMA CHRISTIANSON Jan 05, 2025 14:45 ALFREDO BURROUGHS MD Jan 05, 2025 17:06
--- NOTE | 2025-01-05 14:49 | ELECTROCARDIOGRAPH REPORT ---
[facility] Test Date: 2025-01-05 Test Time: 14:47:57 Pat Name: MOODY CLARK Department: EMERGENCY ROOM Room: ORTH[facility] Gender: F Rn Or Lvn: BRICE : 1935 Requested By: EDILMA CHRISTIANSON Order Number: [id number] Reading MD: Dr. TEE Jeronimo Measurements Intervals [place] Rate: 75 P: 30 [place]: 150 QRS: 7 QRSD: 89 T: 35 QT: 385 QTc: 430 Interpretive Statements Sinus rhythm Probable left atrial enlargement Low voltage, precordial leads Posterior infarct, old Electronically Signed On 01-07-2025 11:47:[address] TEE Jeronimo Please click the below link to view image of tracing.
[2025-01-05 15:05] LABS: MEAN PLATELET VOLUME 7.8 FL (7.4-10.4); RED CELL DISTRIBUTION WIDTH 19.9 % (11.5-14.5)
[2025-01-05 15:15] LABS: CREATININE 0.87 MG/DL (0.40-0.90); TOTAL CARBON DIOXIDE 28.1 MMOL/L (24-32); eCRCL 39 ML/MIN; eGFR 62 ML/MIN
[2025-01-05 15:22] LABS: PRO BRAIN NATRIURETIC PEPTIDE 162 PG/ML (0-450)
[2025-01-05 15:29] LABS: ELLIPTOCYTES 1+; LYMPHOCYTES % (MANUAL) 42.0 % (21-51); MONOCYTES % (MANUAL) 7.0 % (2-12); NEUTROPHILS % (MANUAL) 51.0 % (42-75); NUCLEATED RED BLOOD CELLS 1 /100WBC (0-0); PLATELET ESTIMATE DECREASED
--- NOTE | 2025-01-05 15:46 | RADIOLOGY REPORT ---
CHEST RADIOGRAPH Indication: y Technique: DI CHEST,TWO VIEWS COMPARISON: 08/01/2024 FINDINGS: The cardiac silhouette is unremarkable. Interstitial airspace opacities which could represent sequela of pulmonary edema, atypical infection, chronic lung changes/disease.. The lungs demonstrate bilateral patchy airspace opacities. The pulmonary vasculature is prominent. Small right pleural effusion. There is no pneumothorax. Aortic atherosclerotic disease. IMPRESSION: As above
[2025-01-05 16:29] LABS: LEUKOCYTE ESTERASE ,URINE NEGATIVE (Neg); NITRITES, URINE NEGATIVE (Neg); OCCULT BLOOD,URINE NEGATIVE (Neg)
[2025-01-05 16:30] LABS: UA COLLECTION TYPE URINAL
[2025-01-05 16:35] LABS: MUCUS STRANDS FEW /LPF (Neg); SQUAMOUS EPITHELIAL CELL,UR FEW /LPF (FEW)
[2025-01-05 16:38] LABS: INFLUENZA TYPE A ANTIGEN RAPID NEGATIVE (Negative); INFLUENZA TYPE B ANTIGEN RAPID NEGATIVE (Negative)
[2025-01-05] MEDS: levoFLOXACIN-Levaquin 500mg/D5 100 ML IV SCH (17:18)
[2025-01-05] MEDS ORDERED: mag hydrox/Alum hydrox/simeth 30ml oral suspension PO PRN (18:15)
[2025-01-05] MEDS ORDERED: acetaminophen 650mg rectal suppository RC PRN (18:15)
[2025-01-05] MEDS ORDERED: magnesium hydroxide 30ml (MOM) UD suspension PO PRN (18:15)
[2025-01-05] MEDS ORDERED: magnesium Cl slow-release 64mg tablet PO PRN (18:15)
[2025-01-05] MEDS ORDERED: potassium Cl 20 mEq SR tablet PO PRN ×2 (18:15)
[2025-01-05] MEDS ORDERED: magnesium sulf-water 2g/50mL 50 ML IV PRN (18:15)
[2025-01-05] MEDS ORDERED: magnesium sulf-water 4G/100mL 100 ML IV PRN (18:15)
[2025-01-05] MEDS ORDERED: ondansetron/PF 4mg/2ml inj IV PRN (18:15)
[2025-01-05] MEDS ORDERED: potassium Cl 40MEQ/1/2NS 520ml 520 ML IV PRN (18:15)
[2025-01-05] MEDS ORDERED: docusate sod 100mg capsule PO PRN (18:15)
[2025-01-05] MEDS ORDERED: morphine 4 MG/ML inj SYRINge IV PRN ×2 (18:15)
[2025-01-05 18:56] LABS: APTT 23 SECONDS (22-32); INR 1.1 INR
--- NOTE | 2025-01-05 19:21 | HISTORY AND PHYSICAL-Residence ---
History & Physical Providers to CC Resident Creating Document: SIRENA MURPHY, RES ~ History of Present Illness Primary Medical Doctor: GILDA BARTHOLOMEW Reason for Admit\Complaint: Pancytopenia w/ unknown etiolgy History of Present Illness An 89 years old Jehovah Witness female with a past medical history of HFpEF 65- 70% on 11/01/2021, vertigo, ACS s/p cardiac stent by Dr. Jeronimo in 2019, Hypertension, hyperlipidemia, GERD, chronic back pain, non-specific pulmonary nodules, s/p JORDON+BSO, s/p cholecystectomy, memory issues, and extensive malignancy familial history presented to the ER for being referred out by PCP for pancytopenia with symptomatic anemic symptoms with generalized weakness, shortness of breath and dry cough over 2 weeks. She goes to the [facility] (PCP- Dr Asher, and Neuro-Dr Alatorre), and [facility] is Dr Jeronimo, Dr. Martin pulmonology. Pt is a botswanan speaker, who was seen in the presence of her daughter who is bilingual for botswanan and togolese. Pt was coming in for the generalized weakness lethargic along with the dry cough, which is getting worsen over 2 weeks after she experienced the recent whole body aching with the coryzal symptoms. She could not expectorate although she felt something stucking in her throat. She reported for the chest pain on coughing along with the palpitations. She noticed that she has been having the shortness of breath which required for the 2L/min oxygen supply in ER where she dose not usually have to use oxygen at home. She denied for any coughing up blood. She denied any recent history of long distance travelling, immobilization and recent surgeries, and recent malignancy and its treatment. She denied running fever with chills, abnormal bowel and baldder symptoms, FND, any new visual changes, orthopena and PND and bilateral ankle swellings. She has been noticing that her appetitie is declining over a week, but only unintentionally losing 1-2 lbs in 3 months. She denied for any new bumps and lumps, profound and profuse perspiration especially at night time. She only noticed that her back pain is getting worse over the recent a week ago. She also reported for one time right knee huge swelling without having trauma revealed the red painful inflamed without having any discoloration. She is not easy bleeder and denied any blood dyscrasia personal and family history. No history reported for any skin rash, specific joint pain inflammation. Pt did not expose to any radiation, marrow toxic medications, chemicals and fumes etc. 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 Allergies: Coded Allergies: aspirin (Verified Adverse Reaction, Mild, SEE COMMENT, 01/05/25) Per daughter pt has a sensitive stomach and does not tolerate uncoated pills well, can take enteric coated. Home Medications Home Medications Active Reported Amlodipine Besylate 5 Mg Tablet 1 Tab PO DAILY Atorvastatin Calcium 80 Mg Tablet 1 Tab PO DAILY PROTONIX tablet (Pantoprazole Sodium) 40 Mg Tablet.dr 1 Tab PO BID 30 Days Plavix (Clopidogrel Bisulfate) 75 Mg Tablet 1 Tab PO DAILY 30 Days 24 Hour Allergy Relief (Fluticasone Propionate) 15.8 Ml [place].susp 2 Spr NA DAILY Loratadine 10 Mg Tablet 1 Tab PO DAILY Zostrix Cream* (Capsaicin) 60 Gm Cream.gm. 1 Applic TOP TID Levothyroxine Sodium 25 Mcg Tablet 1 Tab PO DAILY Aspirin EC (Aspirin) 81 Mg Tablet.dr 1 Tab PO DAILY Oyster Shell Calcium (Calcium Carbonate) 500 Mg Tablet 1 Tab PO BID Lisinopril* (Lisinopril) 40 Mg Tablet 1 Tab PO DAILY Past Medical History Past Medical History HFpEF 65-70% on 11/01/2021, vertigo, ACS s/p cardiac stent by Dr. Jeronimo in 2019, Hypertension, hyperlipidemia, GERD, chronic back pain, non-specific pulmonary nodules,memory issues, and extensive malignancy familial history ( Lungs Breast bone cancer and lymphoma in the family) Traumatic injury to the left breast over 60 years ago causing her chronic left breast pain/tenderness with no previous mammogram record. Past Surgical History Surgical History Comment s/p JORDON+BSO for malignancy prophylaxis, s/p cholecystectomy Family History Family History: FH: hypertension Brother FH: kidney disease Maternal grandmother Past Social History Social History Comment The patient is currently living with her daughter at their house. Patient used to smoke a pack of cigarettes per day for more than 35 years, quit smoking last eight years ago. She denies using illicit drugs. She is a lifetime non drinker alcohol. She does not have to use oxygen at home and use some walking assistance in ambulation. She goes to the [facility] (PCP- Dr Asher, and Neuro-Dr Alatorre), and [place] is Dr Jeronimo, Dr. Martin pulmonology. Smoking: Cigarettes Alcohol Use: None Drug Use: None Lives with: Family Lives In: Home Occupation: retired ROS All Other Systems: Reviewed and Negative ROS Constitutional: No fever, chills, weight gain Eyes: No pain, erythema, discharge, blurring of vision ENT: No sore throat, epistaxis, tinnitus Cardiovascular: No chest pain, chest pressure, chest discomfort, palpitations, syncope, lower extremity edema, paroxysmal nocturnal dyspnea Respiratory: No shortness of breath, cough, hemoptysis Gastrointestinal: Normal appetite. No nausea, vomiting, diarrhea, constipation, hematemesis, abdominal bloating, melena or fresh blood Genitourinary: No frequency, urgency, nocturia, hematuria or dysuria Musculoskeletal: No arthralgias or myalgias Integumentary: No change in skin, hair, nails. No swelling, bruising, abrasions Neurologic: No headache, neck pain, numbness or tingling of the extremities, weakness Psychiatric: No delusions, depression, loss of interest in normal activity or change in sleep pattern, hallucinations, suicidal ideations Endocrine: No fatigue, weakness, polydipsia, polyuria, change in appetite, heat or cold intolerance, sweating, dry skin Hematological: No bleeding, petechiae, bruising Allergies: No asthma or urticaria Exam Vitals: Vital Signs Date Time Temp Pulse Resp B/P (MAP) Pulse Ox O2 Delivery O2 Flow Rate FiO2 01/05/25 18:30 55 15 127/63 (84) 96 01/05/25 17:22 2.0 01/05/25 16:34 Nasal Cannula* 28 01/05/25 15:58 98.9 General: General: Well alert, well oriented, not confused, not agitated, not in acute distress, well cooperated during the physical. A botswanan speaker HEENT: HEENT: Conjunctive are pink, sclerae clear, no icterus, pupil is equal in both sides, reactive to light, no ear discharge, no pharyngeal erythema or an edema, mouth and lips are moist. Neck: Neck: Supple, no JVD, no lymphadenopathy and thyromegaly. Chest: Lungs:Equal air entry on both lungs, no additional sounds Chest: no bruises Breast: Right normal breast exam, palpable indurated mass around the left breast areola region with intense tenderness at the left lower outer quadrant without having any skin changes and no eczematous lesions. 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 TEACHER: No focal neurological deficits, no motor and sensory weakness in all 4 extremities, could move all 4 extremities Musculoskeletal: Musculoskeletal: No joint swelling, deformities, inflammations, and no scoliosis, and mild back tenderness Skin: Skin: No active skin lesions and rashes, with some degree of the fresh bruises over the extremities Diagnostic Data Last Recorded Lab Results: 01/05/25 1452 01/05/25 1452 Diagnostic Data: Laboratory Tests Test 01/05/25 14:52 Prothrombin Time 11.4 SECONDS (9.0-12.0) INR International Normalized Ratio 1.1 INR Activated Partial Thromboplast Time 23 SECONDS (22-32) Coagulation Comments Advance Care Planning Advanced Care plannin - 30 Minutes Additional Plan An 89 years old Jehovah Witness female with a past medical history of HFpEF 65- 70% on 11/01/2021, vertigo, ACS s/p cardiac stent by Dr. Jeronimo in 2019, Hypertension, hyperlipidemia, GERD, chronic back pain, non-specific pulmonary nodules, s/p JORDON+BSO, s/p cholecystectomy, memory issues, and extensive malignancy familial history presented to the ER for being referred out by PCP for pancytopenia with symptomatic anemic symptoms with generalized weakness, shortness of breath and dry cough over 2 weeks. # Pancytopenia from unknown etiology # normochromic normocytic anemia # thrombocytopenia # leukopenia with ANC 1.2 -Given history of symptomatic pancytopenia with generalized weakness fatigue malaise along with skin bruises, and coughing with shortness of breath, pt was admitted to the hospital for further workup as patient and family want to proceed with the extensive labs although they are not excited to proceed with the extensive treatment including chemo therapies and surgeries etc. -At the age of 89, not regularly taking any potential meds causing pancytopenia, bone marrow with trophine biopsy w/ or w/o flow cytometery will be beneficial to find out the etiology of bone marrow etiology for pancytopenia including myelodysplastic syndrome versus myelofibrosis. -Decided to proceed with the extensive labs with the imaging in the background history of unspecified lung nodules, and traumatic injury to the left breast over 60 years ago causing her chronic left breast pain/tenderness with no previous mammogram record. -to rule out the possible etiology of pancytopenia ( Possible Infections induced BM failure, B12 and folate deficiency, acute blood loss from hemolysis Plan: -CBC and CMP monitor with peripheral smear -Pending labs ( RYLIE, ESR CRP; B12 and rectic count; LDH, direct bilirubin, haptoglobin, direct Williams test; fibrinogen ferritin, PT INR, APTT; EBV virus and parvovirus antibody, hepatitis B and C panel and HIV) -pending TSH and lipid panel -Diagnostic Bone marrow trophine biopsy w/ or w/o Flow cytometry during weekend or on Wednesday -Diagnostic CT Chest Abd and Pelvis -consider for iron study to replace if necessary -avoid using blood and blood related products in Jehovah Witness patient -hold pantoprazole for possible thrombocytopenia # Possible G(+) and G(-) spectrum pneumonia- pOA, covered w/ broad-spectrum antibiotics # nonspecific pulmonary nodules -chest x-ray showed The cardiac silhouette is unremarkable. Interstitial airspace opacities which could represent sequela of pulmonary edema, atypical infection, chronic lung changes/disease.. The lungs demonstrate bilateral patchy airspace opacities. The pulmonary vasculature is prominent. Small right pleural effusion. There is no pneumothorax. Aortic atherosclerotic disease. -was given one time dose of Levaquin ER -negative influenza A and B, COVID serology tests plan: -switch to IV ceftriaxone and Zithromax at the age of 89 and to cover atypical pneumonia -hold steroid injection before find out nonspecific pulmonary nodules -CT CHest Abd and Pelvis w/o IV COntrast -outpatient pulm consult -titrate down the oxygen requirement # Non specific proteinuria # hypertension # hyperlipidemia -protein contained urine in urine analysis, most probably from the microalbuminuria from chronic hypertension induced nephropathy -control the blood pressure -pending med rec to continue after proper reconciliation CODE STATUS: DNR DNI ( spent time for details in depth discussion for the code status was around 20 mins) DVT prophylaxis: SCDs until fully ambulatory , ambulate with the assistance Analgesia/sedation: IV morphine as needed Lines/tubes: PIV GI prophylaxis: Famotidine Nutrition: Heart healthy diet Prognosis: Guarded Disposition: Continue medical management, pending labs, CT chest abdomen and pelvis, diagnostic bone marrow biopsy, avoid using blood and blood products, continue IV fluids at the rate of 50cc/hr, outpatient Hematology consultation, PT eval and DC plan Resident MD attestation: Patient was seen, examined and discussed with attending MD, Dr. Miki MURPHY MD Internal Medicine Resident, PGY3 [facility] Date of Service: Jan 05, 2025 Billing Provider: RENUKA TUTTLE MD, TIN, RES Jan 05, 2025 19:21
[2025-01-05] MEDS: guaiFENesin ER 600mg tablet PO SCH (20:00)
[2025-01-05] MEDS: K and/or MAG REPLACEMENT MC SCH (20:00)
[2025-01-05 20:51] LABS: CHOL/HDL RATIO 3.0 (0.00-4.99); LACTATE DEHYDROGENASE 331 U/L (81-234); LDL CHOLESTEROL 28 MG/DL (50-100)
[2025-01-05 20:53] LABS: HIV ANTIBODY 1&2 RAPID NON-REACTIVE (Neg)
[2025-01-05] MEDS: azithromycin/NS 500mg/250ml 250 ML IV SCH (21:30)
[2025-01-05] MEDS ORDERED: NITR0.4T51 SL (22:38)
[2025-01-05] MEDS ORDERED: ROSU40TA89 PO (22:39)
--- NOTE | 2025-01-05 23:11 | RADIOLOGY REPORT ---
CLINICAL HISTORY: Possible Left breast mass TECHNIQUE: CT of the chest, abdomen and pelvis was performed without IV contrast. This exam was performed according to our departmental dose optimization program. Up-to-date CT equipment and radiation dose reduction techniques are utilized as appropriate. CTDI: 20.14+ 18.65 DLP: 1675.1 COMPARISON: None FINDINGS: CHEST FINDINGS: Lower Neck: Unremarkablexx Axilla, Mediastinum and Regina: No axillary lymphadenopathy. Multiple normal- sized mediastinal lymph nodes. Limited evaluation of the regina in the absence of intravenous contrast. Heart and Great Vessels: Normal-sized heart. The thoracic aorta is normal in caliber with severe mixed atherosclerotic plaque. The central pulmonary arteries are normal caliber. [id number] 3-vessel calcified coronary artery disease. Mitral annular calcifications. Mild aortic valve calcification. Airway, Lungs and Pleura: Trachea and central airways are patent. Scattered ground-glass and interstitial opacities in the bilateral lungs. There is mild centrilobular emphysema. Scattered areas of pleural-parenchymal scarring. Interlobular septal thickening most pronounced in the lung bases. No pneumo thorax or pleural effusion. Chest Wall and Osseous Structures: Bony demineralization. Mild thoracic spondylosis. No destructive osseous lesion. There is a small low-density subcutaneous lesion in the upper lateral anterior left chest wall on series 4, image 16 which could reflect a sebaceous cyst. No definite breast mass. Abdomen and Pelvis Findings: Liver and Biliary system: Normal-sized liver. Small probable cyst in segment 1 of the liver. Gallbladder is normal caliber. There is no biliary ductal dilatation. Spleen: Unremarkable. Adrenal Glands and Kidneys: Normal adrenal glands. No hydronephrosis or nephrolithiasis. Pancreas and Retroperitoneum: Mild atrophy of the pancreas. There is no retroperitoneal lymphadenopathy. Aorta and Major Vessels: There is aneurysm of the infrarenal abdominal aorta measuring 4.1 cm transverse on series 604, image 52, and 4.2 cm AP on series 605, image 63. Marked mixed atherosclerotic plaque of the aortoiliac vessels. Bowel, Mesentery and Peritoneal space: Normal caliber small and large bowel. There is pancolonic diverticulosis which is Moderate distally. Normal appendix. There is no free air or fluid collection. Pelvis: Prior hysterectomy. No pelvic lymphadenopathy. Urinary bladder is mildly distended. Abdominal wall and Osseous Structures: Small fat containing bilateral inguinal hernias. There are dystrophic ossifications in the subcutaneous tissues overlying the bilateral gluteal muscles. There is bony demineralization. There is chondrocalcinosis of the pubic symphysis and bilateral hips. Multilevel lumbar spondylosis. IMPRESSION: Chest: 1. Scattered ground-glass and interstitial opacities in the bilateral lungs which could reflect multifocal atypical pneumonia. 2. Mild centrilobular emphysema. 3. No discrete left breast mass on CT. Follow-up with dedicated breast imaging if clinically indicated. 4. Small subcutaneous low-density lesion in the upper anterior lateral left chest which could reflect a sebaceous cyst. 5. [id number] 3-vessel calcified coronary artery disease, mild aortic valve calcifications, and severe calcified plaque in the thoracic aorta. Abdomen/pelvis: 1. Aneurysm of the infrarenal abdominal aorta measuring 4.1 cm transverse and 4.2 cm AP. Marked mixed atherosclerotic plaque in the aortoiliac vessels. 2. Pancolonic diverticulosis, moderate distally. 3. No noncontrast evidence of acute abnormality.
[2025-01-06 01:32] VITALS: BP 133/44; PULSE 68; RESP 15; TEMP 99; O2SAT 92
[2025-01-06 05:00] VITALS: BP 106/44; PULSE 59; RESP 16; TEMP 98.9; O2SAT 97
[2025-01-06 06:06] LABS: RED CELL DISTRIBUTION WIDTH 19.0 % (11.5-14.5)
[2025-01-06 06:09] LABS: MEAN PLATELET VOLUME 7.8 FL (7.4-10.4)
[2025-01-06 06:26] LABS: BANDS% (MANUAL) 1.0 % (0-10); LYMPHOCYTES % (MANUAL) 63.0 % (21-51); MONOCYTES % (MANUAL) 9.0 % (2-12); NEUTROPHILS % (MANUAL) 27.0 % (42-75); PLATELET ESTIMATE DECREASED
[2025-01-06 06:39] LABS: CHOL/HDL RATIO 2.6 (0.00-4.99); CREATININE 0.69 MG/DL (0.40-0.90); LDL CHOLESTEROL 22 MG/DL (50-100); TOTAL CARBON DIOXIDE 24.4 MMOL/L (24-32); eCRCL 52 ML/MIN; eGFR 80 ML/MIN
[2025-01-06 08:00] VITALS: RESP 16; O2SAT 97
[2025-01-06] MEDS: CefTRIAXone/D5W-Rocephin 1gm 50 ML IV SCH (08:00)
[2025-01-06 09:18] LABS: % IRON SATURATION 24 % (11-46)
[2025-01-06 10:00] VITALS: BP 110/50; PULSE 58; RESP 16; TEMP 98.3; O2SAT 97
[2025-01-06 17:06] LABS: OCCULT BLOOD STOOL NEGATIVE (Neg)
[2025-01-06 18:00] VITALS: BP 110/48; PULSE 58; RESP 17; TEMP 98.7; O2SAT 94
--- NOTE | 2025-01-06 19:51 | PROGRESS NOTE- Residence ---
Progress Note - Resident Providers to CC Resident Creating Document: SIRENA MURPHY RES ~ Antibiotic Timeout Antibiotic Ordered?: Yes Subjective Patient and daughter are seen at the isolated room in the ortho floor for droplet precautions for parvovirus infection isolation protocol. Patient was explained by her daughter in Pashto explained that lungs infections controlled with the broad-spectrum antibiotics, and still pending labs. There might be more pending labs will be ordered along with the bone marrow sampling on coming possible wednesday. Informed to the pt and family that the pt's labs are getting declining today. Explained about the resulted imaging did not find any possible suspected solid cancer. Objective Vital Signs Date Time Temp Pulse Resp B/P (MAP) Pulse Ox O2 Delivery O2 Flow Rate FiO2 01/06/25 18:30 57 01/06/25 10:00 98.3 16 110/50 (70) 97 Nasal Cannula 2.0 01/05/25 23:30 28 Result Diagram: 01/06/25 0454 01/06/25 0455 Vitals were stable at the moment with temp 98.9 F, AK 60/minute, RR 16/minute, BP 110/50 mm Hg, pulse oximetry 97% on nasal cannula 2 L/min. On examination, General: Well alert, well oriented, not confused, not agitated, not in acute distress, well cooperated during the physical. A persian speaker HEENT: Conjunctive are pink, sclerae clear, no icterus, pupil is equal in both sides, reactive to light, no ear discharge, no pharyngeal erythema or an edema, mouth and lips are moist. Neck: Supple, no JVD, no lymphadenopathy and thyromegaly. Lungs:Equal air entry on both lungs, no additional sounds Chest: no bruises Breast: Right normal breast exam, palpable indurated mass around the left breast areola region with intense tenderness at the left lower outer quadrant without having any skin changes and no eczematous lesions. No bilateral axillary lymphadenopathy Heart: S1-S2 regular sinus rhythm and, regular rate, no gallops, no rubs, no murmurs Abdomen: No visible peristalsis, Bowel sounds present on auscultation, soft, slight tenderness at the left lower quadrant, no guarding, no rigidity Extremities: No obvious deformities, no pitting edema bilaterally, capillary refill intact, able to wiggle toes both sides, peripheral pulsations are intact on both sides LEAD PAINTER: No focal neurological deficits, no motor and sensory weakness in all 4 extremities, could move all 4 extremities Musculoskeletal: No joint swelling, deformities, inflammations, and no scoliosis, and mild back tenderness Skin: No active skin lesions and rashes, with some degree of the fresh bruises over the extremities Coagulation Studies Laboratory Tests Test 01/05/25 14:52 01/05/25 20:10 Prothrombin Time 11.4 SECONDS (9.0-12.0) INR International Normalized Ratio 1.1 INR Activated Partial Thromboplast Time 23 SECONDS (22-32) Coagulation Comments Fibrinogen 333 MG/DL (177-424) Coagulation Clinical Comments Assessment Assessment An 89 years old [employer] Witness female with a past medical history of HFpEF 65- 70% on 11/01/2021, vertigo, ACS s/p cardiac stent by Dr. Jeronimo in 2019, Hypertension, hyperlipidemia, GERD, chronic back pain, non-specific pulmonary nodules, s/p JORDON+BSO, s/p cholecystectomy, memory issues, and extensive malignancy familial history presented to the ER for being referred out by PCP for pancytopenia with symptomatic anemic symptoms with generalized weakness, shortness of breath and dry cough over 2 weeks. Plan Plan # Pancytopenia from unknown etiology # normochromic normocytic anemia # thrombocytopenia # leukopenia with ANC 1.2 -Given history of symptomatic pancytopenia with generalized weakness fatigue malaise along with skin bruises, and coughing with shortness of breath, pt was admitted to the hospital for further workup as patient and family want to proceed with the extensive labs although they are not excited to proceed with the extensive treatment including chemo therapies and surgeries etc. -At the age of 89, not regularly taking any potential meds causing pancytopenia, bone marrow with trophine biopsy w/ or w/o flow cytometery will be beneficial to find out the etiology of bone marrow etiology for pancytopenia including myelodysplastic syndrome versus myelofibrosis. However, pt's retic count is high and there are nucleated red blood cells on peripheral smear indicating that a bone marrow is trying to compensate for pancytopenia, which most probably similar to myelodysplastic disorder clinical pictures rather than myelofibrosis. -Decided to proceed with the extensive labs with the imaging in the background history of unspecified lung nodules, and traumatic injury to the left breast over 60 years ago causing her chronic left breast pain/tenderness with no previous mammogram record. -to rule out the possible etiology of pancytopenia ( Possible Infections induced BM failure, B12 and folate deficiency, acute blood loss from hemolysis -no evidence of intravascular hemolysis with negative direct Williams test, and negative stool occult blood test -no evidence of DIC with a [id number] and normal coag -least possible HLH diagnosis with ferritin 289, normal triglycerides 71 -CT C/A/P showed Chest: 1. Scattered ground-glass and interstitial opacities in the bilateral lungs which could reflect multifocal atypical pneumonia. 2. Mild centrilobular emphysema. 3. No discrete left breast mass on CT. Follow-up with dedicated breast imaging if clinically indicated. 4.Small subcutaneous low-density lesion in the upper anterior lateral left chest which could reflect a sebaceous cyst. 5. [id number] 3-vessel calcified coronary artery disease, mild aortic valve calcifications, and severe calcified plaque in the thoracic aorta. Abdomen/pelvis: 1. Aneurysm of the infrarenal abdominal aorta measuring 4.1 cm transverse and 4.2 cm AP. Marked mixed atherosclerotic plaque in the aortoiliac vessels. 2. Pancolonic diverticulosis, moderate distally. 3. No noncontrast evidence of acute abnormality. Plan: -CBC and CMP monitor -Pending labs ( intrinsic factor antibody for the possible pernicious anemia, RYLIE; B12, haptoglobin; EBV virus and parvovirus antibody, hepatitis B and C panel and HIV) -Diagnostic Bone marrow trophine biopsy w/ or w/o Flow cytometry during or on Wednesday (FISH, next generation sequence for myeloid series, blastic and flow cytometry detection) -to consider to order Peripheral flow cytometry to detect for blast cells, and PNH; also Multiple myeloma work up with protein electrophoresis and immuno fixation with light change study in the setting of protein uria, which should be ruled out, however, recommend to proceed in the outpatient setting because of the limited resources -consider for iron study to replace if necessary -avoid using blood and blood related products in Jehovah Witness patient -hold pantoprazole and clopidogrel for thrombocytopenia # Possible G(+) and G(-) spectrum pneumonia- pOA, covered w/ broad-spectrum antibiotics # nonspecific pulmonary nodules -chest x-ray showed The cardiac silhouette is unremarkable. Interstitial airspace opacities which could represent sequela of pulmonary edema, atypical infection, chronic lung changes/disease.. The lungs demonstrate bilateral patchy airspace opacities. The pulmonary vasculature is prominent. Small right pleural effusion. There is no pneumothorax. Aortic atherosclerotic disease. -was given one time dose of Levaquin ER -negative influenza A and B, COVID serology tests plan: -switch to IV ceftriaxone and Zithromax at the age of 89 and to cover atypical pneumonia- Day 2 -initiated IV Solu-Medrol 40 mg b.i.d. 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 Miki MURPHY MD Internal Medicine Resident, PGY3 [facility] Date of Service: Jan 06, 2025 Billing Provider: RENUKA TUTTLE MD, TIN, RES Jan 06, 2025 19:51
[2025-01-06] MEDS: methylPREDNISolone sod succ/PF 40mg inj. IV SCH (20:45)
[2025-01-06 22:00] VITALS: BP 116/44; PULSE 58; RESP 17; TEMP 99; O2SAT 92
[2025-01-07 06:00] VITALS: BP 112/61; PULSE 63; RESP 18; TEMP 98.7; O2SAT 94
[2025-01-07 08:00] VITALS: RESP 14; O2SAT 97
[2025-01-07] MEDS: levoTHYROXINE 25mcg tablet PO SCH (08:03)
[2025-01-07 10:00] VITALS: BP 113/52; PULSE 70; RESP 13; TEMP 97.3; O2SAT 97
[2025-01-07 11:10] LABS: HAPTOGLOBIN 181 mg/dL (41-333)
[2025-01-07 11:32] LABS: MEAN PLATELET VOLUME 8.9 FL (7.4-10.4); RED CELL DISTRIBUTION WIDTH 19.1 % (11.5-14.5)
[2025-01-07 11:42] LABS: CREATININE 0.75 MG/DL (0.40-0.90); TOTAL CARBON DIOXIDE 25.9 MMOL/L (24-32); eCRCL 48 ML/MIN; eGFR 73 ML/MIN
[2025-01-07 11:57] LABS: LYMPHOCYTES % (MANUAL) 57.0 % (21-51); MONOCYTES % (MANUAL) 1.0 % (2-12); NEUTROPHILS % (MANUAL) 42.0 % (42-75); PLATELET ESTIMATE DECREASED
--- NOTE | 2025-01-07 13:39 | PROGRESS NOTE- Residence ---
Progress Note - Resident Providers to CC Resident Creating Document: SIRENA MURPHY RES ~ Antibiotic Timeout Antibiotic Ordered?: Yes Subjective Patient and daughter are seen at the isolated room in the ortho floor for droplet precautions for parvovirus infection and strict neutropenic isolation protocols. Patient was explained by her daughter in French explained that lungs infections controlled with the broad-spectrum antibiotics, and added IV Steroid yesterday. Pt reported that the her breathing is getting better today. There might be more pending labs will be ordered along with the bone marrow sampling on coming possible wednesday. Informed to the pt and family that the pt's labs are getting declining today again. Explained that two possible thing of getting BM suppression 1) from the direct suppression from the possible Chest infections Vs 2) from the BM itself if declining with the features of MDS. Objective Vital Signs Date Time Temp Pulse Resp B/P (MAP) Pulse Ox O2 Delivery O2 Flow Rate FiO2 01/07/25 10:00 97.3 70 13 113/52 (72) 97 Nasal Cannula 2.0 01/05/25 23:30 28 Result Diagram: 01/07/25 1120 01/07/25 1120 Vitals were stable at the moment with temp 97.3 F, NE 70/minute, RR 18/minute, BP 113/52 mm Hg, pulse oximetry 97% on nasal cannula 2 L/min. On examination, General: Well alert, well oriented, not confused, not agitated, not in acute distress, well cooperated during the physical. A botswanan speaker HEENT: Conjunctive are pink, sclerae clear, no icterus, pupil is equal in both sides, reactive to light, no ear discharge, no pharyngeal erythema or an edema, mouth and lips are moist. Neck: Supple, no JVD, no lymphadenopathy and thyromegaly. Lungs:Equal air entry on both lungs, no additional sounds Chest: no bruises Breast: Right normal breast exam, palpable indurated mass around the left breast areola region with intense tenderness at the left lower outer quadrant without having any skin changes and no eczematous lesions. No bilateral axillary lymphadenopathy Heart: S1-S2 regular sinus rhythm and, regular rate, no gallops, no rubs, no murmurs Abdomen: No visible peristalsis, Bowel sounds present on auscultation, soft, slight tenderness at the left lower quadrant, no guarding, no rigidity Extremities: No obvious deformities, no pitting edema bilaterally, capillary refill intact, able to wiggle toes both sides, peripheral pulsations are intact on both sides INSPECTOR ELEVATORS: No focal neurological deficits, no motor and sensory weakness in all 4 extremities, could move all 4 extremities Musculoskeletal: No joint swelling, deformities, inflammations, and no scoliosis, and mild back tenderness Skin: No active skin lesions and rashes, with some degree of the fresh bruises over the extremities Coagulation Studies Laboratory Tests Test 01/05/25 14:52 01/05/25 20:10 Prothrombin Time 11.4 SECONDS (9.0-12.0) INR International Normalized Ratio 1.1 INR Activated Partial Thromboplast Time 23 SECONDS (22-32) Coagulation Comments Fibrinogen 333 MG/DL (177-424) Coagulation Clinical Comments Assessment Assessment An 89 years old [employer] Witness female with a past medical history of HFpEF 65- 70% on 11/01/2021, vertigo, ACS s/p cardiac stent by Dr. Jeronimo in 2019, Hypertension, hyperlipidemia, GERD, chronic back pain, non-specific pulmonary nodules, s/p JORDON+BSO, s/p cholecystectomy, memory issues, and extensive malignancy familial history presented to the ER for being referred out by PCP for pancytopenia with symptomatic anemic symptoms with generalized weakness, shortness of breath and dry cough over 2 weeks. Plan Plan # Pancytopenia from unknown etiology, Possibly from Chest Infection Vs MDS/myeolid issue Vs PNH # normochromic normocytic anemia # thrombocytopenia # Neutropenia -Given history of symptomatic pancytopenia with generalized weakness fatigue malaise along with skin bruises, and coughing with shortness of breath, pt was admitted to the hospital for further workup as patient and family want to proceed with the extensive labs although they are not excited to proceed with the extensive treatment including chemo therapies and surgeries etc. -At the age of 89, not regularly taking any potential meds causing pancytopenia, bone marrow with trophine biopsy w/ or w/o flow cytometery will be beneficial to find out the etiology of bone marrow etiology for pancytopenia including myelodysplastic syndrome versus myelofibrosis. However, pt's retic count is high and there are nucleated red blood cells on peripheral smear indicating that a bone marrow is trying to compensate for pancytopenia, which most probably similar to myelodysplastic disorder clinical pictures rather than myelofibrosis. -Decided to proceed with the extensive labs with the imaging in the background history of unspecified lung nodules, and traumatic injury to the left breast over 60 years ago causing her chronic left breast pain/tenderness with no previous mammogram record. -to rule out the possible etiology of pancytopenia ( Possible Infections induced BM failure, B12 and folate deficiency, acute blood loss from hemolysis, Myeloid issues eg MDS/ MFs/ Lymphoma or Leukemia, PNH etc) -no evidence of intravascular hemolysis with negative direct Williams test, and negative stool occult blood test -no evidence of DIC with a [id number] and normal coag -least possible HLH diagnosis with ferritin 289, normal triglycerides 71 -Ruled out B2 deficiency with Vitamin B12 are high, high Retic count and LDH <2500, awaiting methylmalonic acid -CT C/A/P showed Chest: 1. Scattered ground-glass and interstitial opacities in the bilateral lungs which could reflect multifocal atypical pneumonia. 2. Mild centrilobular emphysema. 3. No discrete left breast mass on CT. Follow-up with dedicated breast imaging if clinically indicated. 4.Small subcutaneous low-density lesion in the upper anterior lateral left chest which could reflect a sebaceous cyst. 5. [id number] 3-vessel calcified coronary artery disease, mild aortic valve calcifications, and severe calcified plaque in the thoracic aorta. Abdomen/pelvis: 1. Aneurysm of the infrarenal abdominal aorta measuring 4.1 cm transverse and 4.2 cm AP. Marked mixed atherosclerotic plaque in the aortoiliac vessels. 2. Pancolonic diverticulosis, moderate distally. 3. No noncontrast evidence of acute abnormality. Plan: -CBC and CMP daily monitor -Pending labs ( intrinsic factor antibody for the possible pernicious anemia, RYLIE; haptoglobin; EBV virus and parvovirus antibody, hepatitis B and C panel and HIV) -Diagnostic Bone marrow trophine biopsy w/ or w/o Flow cytometry during weekend or on Wednesday (with FISH, next generation sequence for myeloid series, blastic and flow cytometry detection) -to consider to order Peripheral flow cytometry to detect for blast cells, and PNH; also Multiple myeloma work up with protein electrophoresis and immuno fixation with light change study in the setting of protein uria, which should be ruled out, however, recommend to proceed in the outpatient setting because of the limited resources -consider for iron study to replace if necessary -avoid using blood and blood related products in Jehovah Witness patient -hold pantoprazole and clopidogrel for thrombocytopenia -Strict Neutropenic isolation precaution with possible negative pressure room, monitor fever to initiate IV Zosyn within 60 minutes of fever started and to give G-CSF. # Possible G(+) and G(-) spectrum pneumonia- pOA, covered w/ broad-spectrum antibiotics # nonspecific pulmonary nodules -chest x-ray showed The cardiac silhouette is unremarkable. Interstitial airspace opacities which could represent sequela of pulmonary edema, atypical infection, chronic lung changes/disease.. The lungs demonstrate bilateral patchy airspace opacities. The pulmonary vasculature is prominent. Small right pleural effusion. There is no pneumothorax. Aortic atherosclerotic disease. -was given one time dose of Levaquin ER -negative influenza A and B, COVID, HIV serology tests plan: -switch to IV ceftriaxone and Zithromax at the age of 89 and to cover atypical pneumonia- Day 3, to stop azithromycin after completed full 3 days course -continue IV Solu-Medrol 40 mg b.i.d., showed the improvement -outpatient pulm consult -titrate down the oxygen requirement -ID Dr Venegas was requested for the consultation, and pt will be seen on Wednesday, appreciate it # Non specific proteinuria # hypertension # hyperlipidemia -protein contained urine in urine analysis, most probably from the 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 Resident MD attestation: Patient was seen, examined and discussed with attending , Dr. Miki MURPHY MD Internal Medicine Resident, PGY3 [facility] Date of Service: Jan 07, 2025 Billing Provider: RENUKA TUTTLE MD, TIN, RES Jan 07, 2025 13:39
[2025-01-07 18:00] VITALS: BP 116/53; PULSE 56; RESP 15; TEMP 98.4; O2SAT 98
[2025-01-07] MEDS: LIDOCAINE 5% OINTMENT 35GM TP SCH (21:18)
[2025-01-07 22:00] VITALS: BP 141/55; PULSE 66; RESP 18; TEMP 98.2; O2SAT 94
[2025-01-08] VITALS (7 sets, daily range): BP systolic 119–152; BP diastolic 48–57; PULSE 59–91; RESP 13–18; TEMP 97.2–97.7; O2SAT 83–98
[2025-01-08 06:06] LABS: MEAN PLATELET VOLUME 8.5 FL (7.4-10.4); RED CELL DISTRIBUTION WIDTH 19.3 % (11.5-14.5)
[2025-01-08 06:24] LABS: CREATININE 0.69 MG/DL (0.40-0.90); TOTAL CARBON DIOXIDE 23.3 MMOL/L (24-32); eCRCL 52 ML/MIN; eGFR 80 ML/MIN
[2025-01-08 08:42] LABS: LYMPHOCYTES % (MANUAL) 38.0 % (21-51); MONOCYTES % (MANUAL) 2.0 % (2-12); NEUTROPHILS % (MANUAL) 60.0 % (42-75); PLATELET ESTIMATE DECREASED
--- NOTE | 2025-01-08 10:10 | CONSULTATION REPORT - RESIDENT ---
Consult Providers to CC Resident Creating Document: TANNER BABB AISHWARYA MARTINO History of Present Illness Reason for Admit\Complaint: Generalized weakness, pancytopenia History of Present Illness Cardiology consultation note: Patient is primarily Uzbek speaking and the daughter is at the bedside and provided history and translation. 89-year-old female with past medical history of coronary artery disease status post stenting, hypertension, hyperlipidemia chronic back pain presented to the ED with chief complaint cough that has been progressively worsening in the past two weeks. Reports the cough was productive, had associated back pain and chills. The patient's daughter also reported that the patient has been having worsening generalized weakness since the past few weeks which is also associated with a worsening dizziness. She reports that the dizziness is more when the patient gets up suddenly from a sitting position or moves her head quickly. The patient has two find balance or hold onto something when she is walking. They deny any history of trauma to the head, loss of consciousness, focal weakness. The patient's daughter also reports that the patient has been evaluated by her primary care physician for the dizziness. They were sent to neurologist Dr. Snider and was planned to get an MRI of the cervical spine as outpatient. The MRI is due in April. Today the patient stated that her cough and breathing have improved. She is feeling better. Denied any chest pain, nausea, vomiting, dizziness at the moment. No acute overnight events were reported. Allergies: Coded Allergies: aspirin (Verified Adverse Reaction, Mild, SEE COMMENT, 01/05/25) Per daughter pt has a sensitive stomach and does not tolerate uncoated pills well, can take enteric coated. Home Medications Home Medications Active Reported Rosuvastatin Calcium 40 Mg Tablet 1 Tab PO DAILY 30 Days Nitrostat SL* (Nitroglycerin) 0.4 Mg Tablet 1 Tab SL Q5MIN PRN Plavix (Clopidogrel Bisulfate) 75 Mg Tablet 1 Tab PO DAILY 30 Days Zostrix Cream* (Capsaicin) 60 Gm Cream.gm. 1 Applic TOP TID Levothyroxine Sodium 25 Mcg Tablet 1 Tab PO DAILY Lisinopril* (Lisinopril) 40 Mg Tablet 1 Tab PO DAILY Past Medical History Past Medical History Coronary artery disease status post stenting Heart failure preserved ejection fraction Hyperlipidemia Hypertension Past Surgical History Surgical History Comment Hysterectomy and bilateral salpingo-oophorectomy Cholecystectomy Family History Family History: FH: hypertension Brother FH: kidney disease Maternal grandmother Past Social History Social History Comment Lives at home with the daughter. Used to smoke a pack of cigarettes per day for 35 years. Quit smoking eight years ago. Nonalcoholic. ROS ROS As stated above in the HPI, otherwise all systems are reviewed and negative. Exam Vitals: Vital Signs Date Time Temp Pulse Resp B/P (MAP) Pulse Ox O2 Delivery O2 Flow Rate FiO2 01/08/25 09:16 60 01/07/25 22:00 98.2 18 141/55 (83) 94 Nasal Cannula 2.0 01/05/25 23:30 28 General: General: Awake and Alert, no acute distress. HEENT: Conjunctiva pink, Sclera clear, Mucus Membranes moist. Neck: Supple without masses and tenderness. Resp: Unlabored. Lungs clear to auscultation bilaterally. Heart: Regular Rate and rhythm, normal S1 and S2 without murmur, rub or gallop. Abdomen: Soft and non tender no organomegaly Extremities: No cyanosis,clubbing or edema. Skin: Warm and Dry. Some bruises in the left forearm. Neurology: Cranial nerves 2-12 intact. No focal motor or sensory deficits. Musculoskeletal: No deformities noted. Psychiatric: normal mood and affect Diagnostic Data Last Recorded Lab Results: 01/08/25 0511 01/08/25 0511 Diagnostic Data: Laboratory Tests Test 01/05/25 14:52 01/05/25 20:10 Prothrombin Time 11.4 SECONDS (9.0-12.0) INR International Normalized Ratio 1.1 INR Activated Partial Thromboplast Time 23 SECONDS (22-32) Coagulation Comments Fibrinogen 333 MG/DL (177-424) Coagulation Clinical Comments Additional Plan Cardiology consult note: 1. Pneumonia, covering Gram-positive and Gram-negative bacteria Acute hypoxemic respiratory failure secondary to above CT scan of the chest issues artery ground-glass opacities interstitial bilateral possibly reflecting multifocal pneumonia. The patient also has a centrilobular emphysema. There is small subcutaneous low-density lesion in the upper anterior lateral left chest which could reflect a sebaceous. The patient sees Dr. Maritn in his office. Follow up recommended. Currently on antibiotics, steroids as per the primary care team for pneumonia. Continue management as per the primary care team. 2. Pancytopenia Patient is being evaluated for her underlying severe pancytopenia. Currently does not appear to be any active signs or symptoms of bleeding. HIV nonreactive. Awaiting results for parvovirus, Gt bar virus, hep B and C. Follow up with [facility]. Patient likely get bone marrow biopsy today for further evaluation. Continue close monitoring of the patient's H&H. Plavix can be on hold in view of the patient's severe pancytopenia and also history of stenting done long time ago. 3. Dizziness The patient's complaint of worsening dizziness over the past few months. Her symptoms appear to be most likely from orthostatic hypotension versus BPPV. Check orthostatic vitals. TSH within normal limits. EKG significant for sinus rhythm. Telemetry monitoring showed a sinus rhythm, sinus Emre. Troponin negative. ProBNP within normal limits. Patient has no significant electrolyte abnormalities. Recommend PT eval and treatment. Recommend to further work of the patient's dizziness as per primary care team. 4. Coronary artery disease status post stenting-2018 Patient was on Plavix at home. Currently held in view of severe pancytopenia. Lipid panel shows total cholesterol of 75, LDL of 28 and HDL of 25. Triglycerides 161. Continue atorvastatin. We will get further records from the office and re-evaluate the patient. 5. Hypertension Monitor blood pressures closely. Currently on lisinopril 40 mg p.o. daily. CODE STATUS: Full code DVT prophylaxis: SCDs GI prophylaxis: Famotidine Diet: Heart healthy diet and Disposition: Continue medical management as per primary care team. Tanner Babb MD Internal Medicine Resident, PGY-[address] Cayla PASCUAL. Patient known to me from my office practice. Patient's daughter came to office this morning. Agree with holding Plavix in view of pancytopenia. Sepsis Screening Reassessment Date: Jan 08, 2025 Date of Service: Jan 08, 2025 Billing Provider: CASSY MINOR MD, SURYA PRATIK, RES Jan 08, 2025 10:10 CASSY MINOR MD Jan 08, 2025 16:34
[2025-01-08] MEDS: PERFLUTREN PROTEIN-A MICROSPHR (Optison) 0.22 MG/ML 3ML VIAL IV ONE (12:40)
[2025-01-08] MEDS: Ensure Enlive - 237ML PO SCH (13:00)
--- NOTE | 2025-01-08 15:38 | VASCULAR REPORT ---
Carotid Duplex Date: 01/08/2025 02:25 PM Clinical History: Dizziness Comparison: None Technique: Duplex Doppler evaluation of the extracranial carotid and vertebral arteries including color Doppler and spectral/pulsed waveform analysis was performed. Findings: Doppler Spectral Velocity Analysis Right Left pCCA 87/10 cm/s pCCA 100/22 cm/s dCCA 82/15 cm/s dCCA 104/19 cm/s ECA 98/cm/s ECA 104/ cm/s pICA 98/29 cm/s Trish 86/20 cm/s pICA 120/28 cm/s Trish 82/25 cm/s dICA 91/27 cm/s dICA 96/33 cm/s Vert. 80/20 cm/s Vert. 83/27 cm/s Subcl. 172/ cm/s Subcl. 207/ cm/s ICA/CCA 1.10 ICA/CCA 1.15 Real-Time B-Mode Imaging Area Findings Right Left CCA Plaque Composition Intimal thickening Heterogeneous Plaque Description Irregular BIF Plaque Composition Heterogeneous Heterogeneous Plaque Description Irregular Irregular ICA Plaque Composition Heterogeneous Heterogeneous Plaque Description Irregular Irregular Vertebral Antegrade Antegrade Subclavian Multiphasic Multiphasic CONCLUSION Heterogeneous irregular plaque visualized at the carotid artery bifurcation extending into the proximal internal carotid arteries bilaterally. However, no hemodynamically significant stenosis or occlusion visualized in the carotid arteries per criteria bilaterally. Less than 50% stenosis visualized in the internal carotid arteries bilaterally. Of note, visually the internal carotid arteries appear to be 50% stenosed bilaterally. Less than 50% stenosis visualized in the external and common carotid arteries bilaterally Antegrade flow visualized in the vertebral arteries bilaterally. Multiphasic waveforms were noted in the subclavian arteries bilaterally. Mildly elevated velocities with turbulence noted in the subclavian arteries bilaterally, possibly suggesting a proximal obstruction.
[2025-01-08] MEDS ORDERED: HYDROcodone/acetaminophen 5mg/325mg tablet PO PRN (15:40)
[2025-01-08 17:12] LABS: HBSAG SCREEN Negative (Negative); HEP B CORE AB, IGM Negative (Negative); HEPATITIS C VIRUS ANTIBODY Non Reactive (Non Reactive)
--- NOTE | 2025-01-08 18:30 | PROGRESS NOTE- Residence ---
Progress Note - Resident Providers to CC Resident Creating Document: NISHI SPEAR, RES ~ Antibiotic Timeout Antibiotic Ordered?: Yes Subjective The patient was seen and examined at bedside today. She has no new complaints. She underwent bone marrow biopsy by [facility] this afternoon. Complained of significant pain after the procedure and received Dilaudid. Objective Vital Signs Date Time Temp Pulse Resp B/P (MAP) Pulse Ox O2 Delivery O2 Flow Rate FiO2 01/08/25 16:07 92 Nasal Cannula 2.0 01/08/25 16:06 64 01/08/25 15:51 14 01/08/25 10:00 97.7 126/55 (78) 01/05/25 23:30 28 Result Diagram: 01/08/25 0511 01/08/25 0511 General: Well alert, well oriented, not confused, not agitated, not in acute distress, well cooperated during the physical. Kinyarwanda speaking HEENT: Conjunctive are pink, sclerae clear, no icterus, pupil is equal in both sides, reactive to light, no ear discharge, no pharyngeal erythema or an edema, mouth and lips are moist. Neck: Supple, no JVD, no lymphadenopathy and thyromegaly. Lungs:Equal air entry on both lungs, no additional sounds Chest: no bruises Breast: Right normal breast exam, palpable indurated mass around the left breast areola region with intense tenderness at the left lower outer quadrant without having any skin changes and no eczematous lesions. 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: No focal neurological deficits, no motor and sensory weakness in all 4 extremities, could move all 4 extremities Musculoskeletal: No joint swelling, deformities, inflammations, and no scoliosis, and mild back tenderness Skin: No active skin lesions and rashes, with some degree of the fresh bruises over the extremities Coagulation Studies Laboratory Tests Test 01/05/25 14:52 01/05/25 20:10 Prothrombin Time 11.4 SECONDS (9.0-12.0) INR International Normalized Ratio 1.1 INR Activated Partial Thromboplast Time 23 SECONDS (22-32) Coagulation Comments Fibrinogen 333 MG/DL (177-424) Coagulation Clinical Comments Assessment Assessment An 89 years old Jehovah Witness female with a past medical history of HFpEF 65- 70% on 11/01/2021, vertigo, ACS s/p cardiac stent by Dr. Jeronimo in 2019, Hypertension, hyperlipidemia, GERD, chronic back pain, non-specific pulmonary nodules, s/p JORDON+BSO, s/p cholecystectomy, memory issues, and extensive malignancy familial history presented to the ER for being referred out by PCP for pancytopenia with symptomatic anemic symptoms with generalized weakness, shortness of breath and dry cough over 2 weeks. Plan Plan # Pancytopenia from unknown etiology, Possibly from Chest Infection Vs MDS/myeolid issue Vs PNH # normochromic normocytic anemia # thrombocytopenia # Neutropenia # underlying malignancy, can not be ruled out # Evangelical -the patient underwent bone marrow biopsy by [facility] today. -WBC 1.6, trended up from 1.0 today. ANC 0.9 today. -hemoglobin 8.4, platelets 84190, stable from yesterday. -follow up with bone marrow biopsy with flow cytometry, next generation sequence and fish. -no evidence of intravascular hemolysis with negative direct Williams test, and negative stool occult blood test -no evidence of DIC with a fibrinogen 333 and normal coag -least possible HLH diagnosis with ferritin 289, normal triglycerides 71 -Ruled out B12 deficiency with Vitamin B12 are high, high Retic count and LDH <2500, awaiting methylmalonic acid -CBC and CMP daily monitor -Pending labs ( intrinsic factor antibody for the possible pernicious anemia, RYLIE; haptoglobin; EBV virus and parvovirus antibody, hepatitis B and C panel and HIV) -avoid using blood and blood related products in Jehovah Witness patient -hold pantoprazole and clopidogrel for thrombocytopenia -Strict Neutropenic isolation precaution with possible negative pressure room, monitor fever to initiate IV Zosyn within 60 minutes of fever started and to give G-CSF. # Possible G(+) and G(-) spectrum pneumonia- pOA, covered w/ broad-spectrum antibiotics # nonspecific pulmonary nodules -continue ceftriaxone and azithromycin. -chest x-ray showed The cardiac silhouette is unremarkable. Interstitial airspace opacities which could represent sequela of pulmonary edema, atypical infection, chronic lung changes/disease.. The lungs demonstrate bilateral patchy airspace opacities. The pulmonary vasculature is prominent. Small right pleural effusion. There is no pneumothorax. Aortic atherosclerotic disease. -negative influenza A and B, COVID, HIV serology tests -continue IV Solu-Medrol 40 mg b.i.d., showed the improvement -outpatient pulm consult -titrate down the oxygen requirement -ID Dr Alberts was requested for the consultation. Appreciate recommendations. # Non specific proteinuria # hypertension # hyperlipidemia -protein contained urine in urine analysis, most probably from the microalbuminuria from chronic hypertension induced nephropathy -control the blood pressure -med rec done -to consider the protein electrophoresis for the possible MM CODE STATUS: DNR DVT prophylaxis: SCDs until fully ambulatory , ambulate with the assistance Analgesia/sedation: IV morphine as needed Lines/tubes: PIV GI prophylaxis: Famotidine Nutrition: Heart healthy diet Prognosis: Guarded Disposition: Continue medical management, pending labs. Strict neutropenic isolation protocol, monitor the fever, PT eval and DC plan. Nishi Spear MD Internal Medicine Resident, PGY-2 The patient was seen, examined and discussed with the attending physician, Dr. Livingston. Date of Service: Jan 08, 2025 Billing Provider: RENUKA LIVINGSTON MD,NISHI NUNEZ, RES Jan 08, 2025 18:30
--- NOTE | 2025-01-08 23:02 | CONSULTATION REPORT ---
Consult Consult Consultation Reason for Consult: PNA Consulting Provider: Dr. Livingston Antibiotic Days: Rocephin 2 S/P Levaquin Lines: PIV Micro: 01/05 BLood- ngtd HPI: Patient is an 89 year old female with past medical history of pulmonary nodules who ID is asked to see in consultation for PNA and leukopenia. She is American speaking so the interview took place in both American and Sri Lankan and her daughter was at bedside providing translation. Patient follows regularly with Dr. Martin and so saw him in the office in the last couple of weeks and he expressed concern over a decreased PFT and decreased exercise tolerance. He had recommended imaging that was unable to be scheduled in a timely manner so when patient developed cough, daughter brought her to the ER for a more timely exam. Imaging revealed ground glass opacities; viral testing has been negative, however, including influenza and COVID. Patient denies any fever at home (has not had fever here though she is on steroids). Of more concern is a new- onset pancytopenia and she is pending bone marrow biopsy. Past Medical/Surgical History: HFpEF 65-70% on 11/01/2021, vertigo, ACS s/p cardiac stent by Dr. Jeronimo in 2019, Hypertension, hyperlipidemia, GERD, chronic back pain, non-specific pulmonary nodules,memory issues, s/p JORDON+BSO for malignancy prophylaxis, s/p cholecystectomy Current Medications Medications (Trade) Dose Ordered Sig/Geno Route PRN Reason Start Time Stop Time Status Last Admin Dose Admin Levofloxacin 100 ml @ 100 mls/hr DAILY IV 01/05/25 16:40 01/05/25 21:01 DC 01/05/25 17:18 100 MLS/HR Ceftriaxone Sodium 50 ml @ 100 mls/hr DAILY IV 01/06/25 08:00 01/08/25 09:11 100 MLS/HR Azithromycin 250 ml @ 250 mls/hr Q24H IV 01/05/25 19:50 01/08/25 15:59 DC 01/08/25 12:20 250 MLS/HR Guaifenesin (MuciNEX tablet) 600 mg Q12H PO 01/05/25 20:00 01/08/25 20:25 600 MG Famotidine (Pepcid tablet) 20 mg DAILY PO 01/06/25 11:50 01/08/25 09:15 20 MG Methylprednisolone Sodium Succinate (Solu-Medrol 40mg inj.) 40 mg BID IV 01/06/25 20:00 01/08/25 20:25 40 MG Capsaicin (Zostrix cream) 1 applic TID TP 01/06/25 21:00 01/07/25 16:24 DC 01/06/25 20:45 1 APPLIC Levothyroxine Sodium (Synthroid tablet) 25 mcg DAILY PO 01/07/25 08:00 01/07/25 08:03 25 MCG Lisinopril (Zestril tablet) 40 mg DAILY PO 01/07/25 08:00 01/08/25 09:16 20 MG Atorvastatin Calcium (Lipitor tablet) 80 mg DAILY PO 01/07/25 08:00 01/08/25 09:13 80 MG Lidocaine (lidocaine ointment) 1 applic TID TP 01/07/25 21:00 01/08/25 15:59 1 APPLIC Lactose (Ensure Enlive - 237ML) 1 can TIDWM PO 01/08/25 13:00 01/08/25 18:52 1 CAN Hydromorphone HCl (Dilaudid inj.) 1 mg Q4H PRN IV moderate or severe pain 4-10 01/08/25 15:40 01/08/25 15:51 1 MG : Social History: Daughter is involved in her care, as above (works as a certified veterinary medical officer) Family History: Noncontributory ROS: As in HPI, otherwise negative Objective: Vitals: Afebrile, 73, 13, 143/50, 93% on RA General: A&Ox3, NAD HEENT: NC/AT, normal conjunctiva, upper dentures, no oral lesions CV: Regular Resp: Clear anteriorly Abd: Soft, nontender, nondistended Ext: no rash Lines: PIV ok Laboratory Tests 01/08/25 05:11 01/05 CT 1. Scattered ground-glass and interstitial opacities in the bilateral lungs which could reflect multifocal atypical pneumonia. 2. Mild centrilobular emphysema. 3. No discrete left breast mass on CT. Follow-up with dedicated breast imaging if clinically indicated. 4. Small subcutaneous low-density lesion in the upper anterior lateral left chest which could reflect a sebaceous cyst. 5. [id number] 3-vessel calcified coronary artery disease, mild aortic valve calcifications, and severe calcified plaque in the thoracic aorta. Assessment: // Ground glass opacity on CT of chest - COVID and Influenza ruled out. While ddx does include all intracellular infections, patient has not been febrile nor does she have significant cough (on steroids). Other ddx include fluid overload, DAH, malignancy, doubt autoimmune. From review of her home MAR, I see no reason to suspect pneumonitis // New onset pancytopenia, leukopenia - patient has maintained an ANC between 500 and 1200 while here. // Hx pulmonary nodules and emphysema for which she follows with Dr. Martin // Antibiotic Allergies: none known Plan: - DC Rocephin - Azithro does have some utility for some of the ddx of ground glass though infection is in doubt - Send R[facility] panel to [facility] - Follow up pending bone marrow biopsy - Get baseline CTs for comparison - Monitor ANC, O2 requirement - Physical therapy - Thank you for the consult, will continue to follow ANANT SPENCE DO Jan 08, 2025 23:02
[2025-01-09 04:59] LABS: MEAN PLATELET VOLUME 7.7 FL (7.4-10.4); RED CELL DISTRIBUTION WIDTH 19.6 % (11.5-14.5)
[2025-01-09 05:15] LABS: CREATININE 0.73 MG/DL (0.40-0.90); TOTAL CARBON DIOXIDE 28.8 MMOL/L (24-32); eCRCL 49 ML/MIN; eGFR 75 ML/MIN
[2025-01-09 05:43] LABS: LYMPHOCYTES % (MANUAL) 31.0 % (21-51); METAMYLEOCYTES% (MANUAL) 1.0 % (0-0); NEUTROPHILS % (MANUAL) 68.0 % (42-75); NUCLEATED RED BLOOD CELLS 1 /100WBC (0-0)
[2025-01-09 05:44] LABS: LARGE PLATELETS MODERATE; PLATELET ESTIMATE DECREASED
[2025-01-09 08:00] VITALS: BP_SYST 120; BP_SYST 142; BP_SYST 154; BP_DIAS 44; BP_DIAS 54; BP_DIAS 57; RESP 16; O2SAT 95
--- NOTE | 2025-01-09 09:09 | RADIOLOGY REPORT ---
DATE OF SERVICE: 01/08/2025 01:11 PM REASON FOR EXAM: dizziness COMPARISON: CT CT SINUS on DOS: 12/21/24, CT HEAD on DOS: 05/10/20, CT HEAD on DOS: 10/05/19 DOSE: DLP: 1183.14 mGy-cm Technique: Helical imaging carried out from skull base to vertex without intravenous contrast. Findings: Scattered hypoattenuation in the periventricular and subcortical white matter, suggestive of chronic microvascular disease. The ventricles and sulci are mildly enlarged, compatible with generalized parenchymal volume loss. There is no mass- effect, hemorrhage, midline shift, or abnormal extra-axial fluid collection visible. No calvarial fracture. Right maxillary sinus mucosal thickening. Mastoid air cells are clear. IMPRESSION: NO ACUTE INTRACRANIAL HEMORRHAGE OR MASS EFFECT. ISSA REYES
[2025-01-09 10:00] VITALS: BP 125/55; PULSE 61; RESP 16; TEMP 98.3; O2SAT 94
[2025-01-09] MEDS ORDERED: DEXTROSE 15 GM of carb/4 tabs (each vial/BOTTLE has 4 tablets) PO PRN ×2 (10:35)
[2025-01-09] MEDS ORDERED: dextrose 50%-water 50ml dispensing syringe IV PRN ×2 (10:35)
[2025-01-09] MEDS ORDERED: glucagon, human recombinant 1mg kit SUBCUT PRN (10:35)
--- NOTE | 2025-01-09 11:34 | PROGRESS NOTE- Residence ---
Progress Note - Resident Providers to CC Resident Creating Document: GRICEL CARTY, AISHWARYA CC: CASSY MINOR MD ~ Antibiotic Timeout Antibiotic Ordered?: No Subjective Patient was seen and examined at bedside today. Patient does not have any complaints like chest pain, shortness of breath, palpitations or dizziness. No acute overnight events pertaining to cardiology team Objective Vital Signs Date Time Temp Pulse Resp B/P (MAP) Pulse Ox O2 Delivery O2 Flow Rate FiO2 01/09/25 08:23 66 01/09/25 08:00 16 95 Nasal Cannula 2.0 28 01/08/25 22:00 97.2 137/49 (78) Result Diagram: 01/09/2542801/09/25428 General: Alert, awake, oriented, not in acute distress HEENT: PERRLA, no icterus, pallor, lymphadenopathy, carotid bruit Respiratory system: Bilateral vesicular breath sounds heard, no adventitious breath sounds CVS: S1-S2 heard, no murmurs/rubs/gallop GI: Soft, nontender, no organomegaly, no guarding/rigidity, bowel sounds present Neuro: No focal neurological deficits present Extremities: No edema cyanosis clubbing/deformities Skin: Warm and dry Coagulation Studies Laboratory Tests Test 01/05/25 14:52 01/05/25 20:10 Prothrombin Time 11.4 SECONDS (9.0-12.0) INR International Normalized Ratio 1.1 INR Activated Partial Thromboplast Time 23 SECONDS (22-32) Coagulation Comments Fibrinogen 333 MG/DL (177-424) Coagulation Clinical Comments Assessment Assessment An 89 years old Jehovah Witness female with a PMH of HFpEF 65-70% on 11/01/2021, vertigo, CAD s/p PTCA HTN, HLD,presented to the ER for being referred out by PCP for pancytopenia with symptomatic anemic symptoms with generalized weakness, shortness of breath and dry cough over 2 weeks. Cardiology team is following the patient as she is seen outpatient by Dr. Minor on request by patient's daughter Plan Plan CAD s/p stenting in 2019 Held Plavix in view of pancytopenia Continue atorvastatin Consider a small dose of beta jagdish with the patient is able to tolerate HTN Continue to monitor blood pressures Continue lisinopril 40 mg p.o. daily Pneumonia, covering Gram-positive and Gram-negative bacteria Acute hypoxemic respiratory failure secondary to the above Pancytopenia Dizziness Management per hospitalist team Code status: DNR Diet: Heart healthy diet DVT prophylaxis: SCD Disposition: Continue medical management per primary care team. Cardiology team will continue to follow up with the patient. Gricel Carty MD Internal Medicine, PGY 2 Date of Service: Jan 09, 2025 Billing Provider: CASSY MINOR MD, SIVA, RES Jan 09, 2025 11:34 CASSY MINOR MD Jan 09, 2025 17:11
[2025-01-09] MEDS: INSULIN LISPRO 100 UNIT/ML INSULN.PEN MULTI-DOSE SQ SCH (12:31)
[2025-01-09] MEDS: filgrastim 300mcg inj SQ ONE (13:00)
[2025-01-09] MEDS: HYDROcodone/acetaminophen 10/325mg tab PO PRN (14:07)
[2025-01-09 16:40] LABS: ANTINUCLEAR ANTIBODIES Negative (Negative)
--- NOTE | 2025-01-09 17:29 | CARDIOLOGY REPORT ---
APPROVED REPORT EXAM: Comprehensive 2D, Doppler, and color-flow Echocardiogram. 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 PRIOR ECHOCARDIOGRAM: None. 2D Dimensions RVDd 3.9 cm IVSd 0.8 (0.7-1.1cm) LVDd 5.6 cm PWd 0.9 (0.7-1.1cm) IVSs 1.3 (0.8-1.2cm) LVDs 3.6 (2.5-4.0cm) PWs 1.5 (0.8-1.2cm) LVOT Diameter 1.92 (1.8-2.4cm) LVEF(%) 65.0 (>50%) FS (%) 36.1 % SV 100.3 ml CO 6.0 L/min M-Mode Dimensions Left Atrium(MM) 4.37 (2.5-4.0cm) Aortic Root 3.17 (2.2-3.7cm) Aortic Cusp Exc 1.69 (1.5-2.0cm) Aortic Valve AoV Peak Senthil. 201.7 cm/s AoV VTI 41.7 cm AO Peak GR. 16.3 mmHg AO Mean GR. 7 mmHg LVOT VTI 32.11 cm LVOT Peak Senthil. 155.5 cm/s MARITZA (VTI) 2.23 cm2 AV DI 0.77 % Mitral Valve MV E Velocity 81.2 cm/s MV Peak Gr. 4 mmHg MV A Velocity 103.6 cm/s MV PHT 48 ms E/A Ratio 0.8 MVA (PHT) 4.58 cm2 MV VMax 95.0 cm/s Tricuspid Valve TR P. Velocity 300 cm/s RAP ESTIMATE 5 mmHg TR Peak Gr. 36 mmHg RVSP 41 mmHg LEFT VENTRICLE Normal LV size and wall thickness. Overall systolic function is normal. Overall LVEF is 60-65%. RIGHT VENTRICLE Right ventricle is mildly dilated. Normal function. RVSP is 41 mmHg. ATRIA Left atrium is mildly dilated. Right atrium is mildly dilated. AORTIC VALVE Trileaflet AV appears mildly sclerotic without stenosis. Trace insufficiency. MITRAL VALVE Mild mitral annular calcification without stenosis. Mild regurgitation. TRICUSPID VALVE TV appears structurally normal with mild regurgitation. PULMONIC VALVE Pulmonic valve is not well visualized. GREAT VESSELS The aortic root is normal in size. The ascending aorta is normal in size. The IVC is normal in size and collapses >50% with inspiration. PERICARDIUM Normal pericardium. No effusion. Other Information Study Quality: Fair Technically limited study due to Body habitus. Conclusion Overall LVEF is 60-65%. Normal LV size and wall thickness. Overall systolic function is normal. Right ventricle is mildly dilated. Normal function. RVSP is 41 mmHg. Trileaflet AV appears mildly sclerotic without stenosis. Trace insufficiency. Mild mitral annular calcification without stenosis. Mild regurgitation. TV appears structurally normal with mild regurgitation. The aortic root is normal in size. The ascending aorta is normal in size. Normal pericardium. No effusion.
[2025-01-09 18:00] VITALS: BP 152/64; PULSE 65; RESP 16; TEMP 98.8; O2SAT 91
--- NOTE | 2025-01-09 18:19 | PROGRESS NOTE- Residence ---
Progress Note - Resident Providers to CC Resident Creating Document: NISHI SPEAR, RES ~ Antibiotic Timeout Antibiotic Ordered?: Yes Subjective Patient was seen and examined at bedside today. She does not have any new complains. She is happy that she got the bone marrow biopsy yesterday. She declined neupogen and wants to research more on it before proceeding with the medication. Possible discharge home tomorrow. Objective Vital Signs Date Time Temp Pulse Resp B/P (MAP) Pulse Ox O2 Delivery O2 Flow Rate FiO2 01/09/25 14:07 15 01/09/25 10:00 98.3 61 125/55 (78) 94 Room Air 01/09/25 08:00 2.0 28 Result Diagram: 01/09/2542801/09/25428 General: Well alert, well oriented, not in acute distress, well cooperated during the physical. Yakut speaking HEENT: Conjunctive are pink, sclerae clear, no icterus, pupil is equal in both sides, reactive to light, no ear discharge, no pharyngeal erythema or an edema, mouth and lips are moist. Neck: Supple, no JVD, no lymphadenopathy and thyromegaly. Lungs:Equal air entry on both lungs, no additional sounds Chest: no bruises Breast: Right normal breast exam, palpable indurated mass around the left breast areola region with intense tenderness at the left lower outer quadrant without having any skin changes and no eczematous lesions. 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: No focal neurological deficits, no motor and sensory weakness in all 4 extremities, could move all 4 extremities Musculoskeletal: No joint swelling, deformities, inflammations, and no scoliosis, and mild back tenderness Skin: No active skin lesions and rashes, with some degree of the fresh bruises over the extremities Coagulation Studies Laboratory Tests Test 01/05/25 14:52 01/05/25 20:10 Prothrombin Time 11.4 SECONDS (9.0-12.0) INR International Normalized Ratio 1.1 INR Activated Partial Thromboplast Time 23 SECONDS (22-32) Coagulation Comments Fibrinogen 333 MG/DL (177-424) Coagulation Clinical Comments Assessment Assessment An 89 years old [employer] Witness female with a PMH of HFpEF 65-70% on 11/01/2021, vertigo, CAD s/p PTCA HTN, HLD,presented to the ER for being referred out by PCP for pancytopenia with symptomatic anemic symptoms with generalized weakness, shortness of breath and dry cough over 2 weeks. Plan Plan # Pancytopenia from unknown etiology, Possibly from Chest Infection Vs MDS/myeolid issue Vs PNH # normochromic normocytic anemia # thrombocytopenia # Neutropenia # underlying malignancy, can not be ruled out # Taoist -WBC 1.6. ANC 0.9 today. Ordered filgrastim - patient denied and wants to research on it. -hemoglobin 8.5, platelets [id number], stable from yesterday. -follow up with bone marrow biopsy with flow cytometry, next generation sequence and fish. -no evidence of intravascular hemolysis with negative direct Williams test, and negative stool occult blood test -no evidence of DIC with a fibrinogen 333 and normal coag -least possible HLH diagnosis with ferritin 289, normal triglycerides 71 -Ruled out B12 deficiency with Vitamin B12 are high, high Retic count and LDH <2500, awaiting methylmalonic acid -Pending labs ( intrinsic factor antibody for the possible pernicious anemia, RYLIE; haptoglobin) -EBV virus and parvovirus IgG positive, negative hepatitis B and C panel and HIV) -avoid using blood and blood related products in Jehovah Witness patient -hold pantoprazole and clopidogrel for thrombocytopenia -Strict Neutropenic isolation precaution with possible negative pressure room. # Possible G(+) and G(-) spectrum pneumonia- pOA, covered w/ broad-spectrum antibiotics # nonspecific pulmonary nodules -Dr. Lui discontinued ceftriaxone and continued the patient on azithromycin. Appreciate recommendations. -chest x-ray showed The cardiac silhouette is unremarkable. Interstitial airspace opacities which could represent sequela of pulmonary edema, atypical infection, chronic lung changes/disease.. The lungs demonstrate bilateral patchy airspace opacities. The pulmonary vasculature is prominent. Small right pleural effusion. There is no pneumothorax. Aortic atherosclerotic disease. -negative influenza A and B, COVID, HIV serology tests -respiratory virus panel sent to [facility]. -IV Solu-Medrol 40 mg b.i.d. discontinued. Started her on oral prednisone 40 mg daily. -outpatient pulm consult -titrate down the oxygen requirement # Non specific proteinuria # hypertension # hyperlipidemia -protein contained urine in urine analysis, most probably from the microalbuminuria from chronic hypertension induced nephropathy -control the blood pressure -med rec done -to consider the protein electrophoresis for the possible MM CODE STATUS: DNR DVT prophylaxis: SCDs until fully ambulatory, ambulate with the assistance Analgesia/sedation: IV morphine as needed Lines/tubes: PIV GI prophylaxis: Famotidine Nutrition: Heart healthy diet Prognosis: Guarded Disposition: Continue medical management, pending labs. Strict neutropenic isolation protocol. Possible discharge tomorrow. Nishi Spear MD Internal Medicine Resident, PGY-2 The patient was seen, examined and discussed with the attending physician, Dr. Livingston. Date of Service: Jan 09, 2025 Billing Provider: RENUKA LIVINGSTON MD,NISHI NUNEZ, RES Jan 09, 2025 18:19
[2025-01-09 20:00] VITALS: BP_SYST 148; BP_SYST 151; BP_SYST 154; BP_DIAS 53; BP_DIAS 56; PULSE 54; PULSE 61; PULSE 68
[2025-01-09 22:21] VITALS: BP 154/56; PULSE 54; RESP 15; TEMP 97.8; O2SAT 96
--- NOTE | 2025-01-09 22:44 | PROGRESS NOTE ---
Progress Note ID Providers to CC ~ Progress Note Progress Note: Antibiotic Days: Azithro 4 Lines: PIV Micro: 01/05 Blood- ngtd Subjective: Patient was crying today because her blood sugars were out of control; she had a long day yesterday and was exhausted Objective: Vitals: Afebrile, 65, 16, 152/64, 91% on RA General: Alert, tearful but no medical distress CV: Regular Resp: Clear anteriorly Abd: Soft, nontender, nondistended Ext: no rash Lines: PIV ok Laboratory Tests 01/09/25 04:29 Assessment: // Ground glass opacity on CT of chest - COVID and Influenza ruled out. While ddx does include all intracellular infections, patient has not been febrile (on steroids). Other ddx include DAH, malignancy, doubt autoimmune. From review of her home MAR, I see no reason to suspect pneumonitis. EF and BNP ok // New onset pancytopenia, leukopenia - patient has maintained an ANC between 500 and 1200 while here. Pending results of bone marrow biopsy // Hx pulmonary nodules and emphysema for which she follows with Dr. Martin // Antibiotic Allergies: none known Plan: - Finish Azithro - Follow up RVP panel to [facility] - Follow up pending bone marrow biopsy - Get baseline CTs for comparison (will discuss with Dr. Martin tomorrow) - Monitor ANC, O2 requirement - Physical therapy - Will continue to follow ANANT SPENCE DO Jan 09, 2025 22:43
[2025-01-10 06:00] VITALS: BP 142/55; PULSE 62; RESP 14; TEMP 98.4; O2SAT 95
[2025-01-10 06:08] LABS: MEAN PLATELET VOLUME 8.1 FL (7.4-10.4); RED CELL DISTRIBUTION WIDTH 19.2 % (11.5-14.5)
[2025-01-10 06:18] LABS: CREATININE 0.63 MG/DL (0.40-0.90); TOTAL CARBON DIOXIDE 27.9 MMOL/L (24-32); eCRCL 57 ML/MIN; eGFR 89 ML/MIN
[2025-01-10 09:15] LABS: LYMPHOCYTES % (MANUAL) 42.0 % (21-51); METAMYLEOCYTES% (MANUAL) 1.0 % (0-0); MONOCYTES % (MANUAL) 5.0 % (2-12); NEUTROPHILS % (MANUAL) 52.0 % (42-75)
[2025-01-10 09:17] LABS: PLATELET ESTIMATE DECREASED
[2025-01-10 12:31] VITALS: RESP 15
[2025-01-10] MEDS ORDERED: TBO-filgrastim 300 MCG/0.5 ML inj. SQ ONE (13:00)
[2025-01-10] MEDS ORDERED: LISI20TA28 PO (13:41)
[2025-01-10] MEDS ORDERED: PRED10TA23 PO (13:41)
--- NOTE | 2025-01-10 19:09 | DISCHARGE SUMMARY-Residence ---
Discharge Summary Providers to CC Resident Creating Document: SIRENA MURPHY RES ~ Discharge Summary Admission Diagnosis: Pneumonia, hypoxemia Hospital Course DATE OF ADMISSION: 01/05/2025 DATE OF DISCHARGE: 01/10/2025 Discharge Diagnosis\Comment: # Pancytopenia from unknown etiology, Possibly from Chest Infection Vs EBV/ Parvo viral induced Vs MDS/myeolid issue Vs PNH ( unable to exclude at this time while BM Bx and RVP were pending) # normochromic normocytic anemia # thrombocytopenia # Neutropenia # G(+) and G(-) spectrum pneumonia- pOA, covered w/ broad-spectrum antibiotics # nonspecific pulmonary nodules # Non specific proteinuria # hypertension # hyperlipidemia Operations\Procedures: Bone marrow biopsy by the [facility] Consultants: Dr Lui, ID Dr Jeronimo, Cardiology Complications: None Condition on DC: Stable New Medications: Prednisone (Prednisone) 10 Mg Tablet 0 PO DAILY, #42 TAB Take 4 tabs daily x4 days, then 3 daily x4 days 2 daily x4 days 1 daily x4 days 1/2 daily x4 days then STOP Lisinopril (Lisinopril) 20 Mg Tablet 20 MG PO BID for 30 Days, #60 TAB Continued Medications: Capsaicin 60GM Cream* (Zostrix Cream*) 60 Gm Cream.gm. 1 APPLIC TOP TID Clopidogrel Bisulfate (Plavix) 75 Mg Tablet 1 TAB PO DAILY for 30 Days, #30 TAB 0 Refills Levothyroxine Sodium (Levothyroxine Sodium) 25 Mcg Tablet 1 TAB PO DAILY Nitroglycerin SL* (Nitrostat SL*) 0.4 Mg Tablet 1 TAB SL Q5MIN PRN for Chest pain Q5min PRNx3-call MD, #25 TAB Rosuvastatin Calcium (Rosuvastatin Calcium) 40 Mg Tablet 1 TAB PO DAILY for high cholesterol for 30 Days, #30 TAB 0 Refills Discontinued Medications: Lisinopril* (Lisinopril*) 40 Mg Tablet 1 TAB PO DAILY Discharge Summary: An 89 years old [employer] Witness female with a past medical history of HFpEF 65- 70% on 11/01/2021, vertigo, ACS s/p cardiac stent by Dr. Jeronimo in 2019, Hypertension, hyperlipidemia, GERD, chronic back pain, non-specific pulmonary nodules, s/p JORDON+BSO, s/p cholecystectomy, memory issues, and extensive malignancy familial history presented to the ER for being referred out by PCP for pancytopenia with symptomatic anemic symptoms with generalized weakness, shortness of breath and dry cough over 2 weeks. Hospital course: # Pancytopenia from unknown etiology, Possibly from Chest Infection Vs EBV/ Parvo viral induced Vs MDS/myeolid issue Vs PNH ( unable to exclude at this time while BM Bx and RVP were pending) Patient was admitted to the hospital for further management and workup for her symptomatic pancytopenia after patient and family were discussed in details about the goals of therapy where they wish to proceed with the extensive labs although they are not excited to proceed with the extensive treatment including chemo therapies and surgeries etc. At the age of 89, not regularly taking any potential meds causing pancytopenia, bone marrow with trophine biopsy w/ or w/o flow cytometery will be beneficial to find out the possible etiology of bone marrow etiology for pancytopenia including myelodysplastic syndrome versus myelofibrosis. However, pt's retic count is high and there are nucleated red blood cells on peripheral smear indicating that a bone marrow is trying to compensate for pancytopenia, which most probably similar to myelodysplastic disorder clinical pictures rather than myelofibrosis. The extensive labs including -pending B12 and folic acid, methylmalonic acid levels but normal retic count and LDH <2500 -no evidence of intravascular hemolysis with negative direct Williams test and normal indirect bilirubin levels -DIC was ruled out with a [id number] and normal coagulation profile -least possible HLH diagnosis with ferritin 289, normal triglycerides 71 -EB virus and parvovirus infection serologies were tested which turned to have positive for which pt was isolated with the full precaution as well -negative RYLIE serology -WNL intrinsic factors for pernicious anemia -negative serologies for hepatitis-B hepatitis-C and HIV, COVID and influenza virus -Diagnostic peripheral blood flow cytometry was not done with the limited resources which should be done in the outpatient to also exculed PNH -Diagnostic Bone marrow trophine biopsy w/ or w/o Flow cytometry with FISH, next generation sequence for myeloid series, blastic and flow cytometry detection for GPO defects (CD55 and [id number]) for PNH, also to ruled out for multiple myeloma work up with protein electrophoresis and immuno fixation with light change study in the setting of protein uria We held clopidogrel for pancytopenia presentation and strict neutropenic isolation precaution was provided. she was continuously monitored for fever. CT chest abdomen and pelvis without IV contrast were ordered with a background history of nonspecific right pulmonary nodule. we avoided using blood and blood related products in Jehov[employer] Witness patient. Patient was offered to get G-CSF injection daily but the patient refused to have one with the bleed of blood related products and possible side effects of G-CSF injection. During hospitalization, her CBC was slightly and gradually showing some improvement. # G(+) and G(-) spectrum pneumonia- pOA, covered w/ broad-spectrum antibiotics # nonspecific pulmonary nodules Promptly started IV ceftriaxone and Zithromax for the possible chest infection including atypical pneumonia causing possible bone marrow suppression least two pancytopenia along with IV steroid injection. ID Dr Lui was also requested for the ID consultation for possible chest infection least two pancytopenia where the RVP and discussion with Dr Mario Martinez for the lung nodule were occu rred. She completed IV Zithromax after five days and IV ceftriaxone was stopped after three days as per ID consultation. # Non specific proteinuria # hypertension # hyperlipidemia # Steroid induced hyperglycemia We continued her home medications after appropriately reviewed and reconciled during hospitalization. Her blood sugar was elevated because of the IV steroid injection. She refused to get insulin injection to control her blood sugar during hospitalization. SCDs until fully ambulatory , ambulate with the assistance was recommended. The pain was controlled with the IV morphine as needed and GI prophylaxis was achieved with the famotidine while her pantoprazole was temporarily held during hospitalization with a reason of possible thrombocytopenia. All of the patient and family's concerns were addressed with the best knowledge of our team before she was discharged back home today. All of the vitals were stable at the moment with temp 98.4 F, CT 62/minute, RR 14/minute, BP 140/55 mm Hg. On examination, General: Well alert, well oriented, not confused, not agitated, not in acute distress, well cooperated during the physical. A citizen of [place] speaker HEENT: Conjunctive are pink, sclerae clear, no icterus, pupil is equal in both sides, reactive to light, no ear discharge, no pharyngeal erythema or an edema, mouth and lips are moist. Neck: Supple, no JVD, no lymphadenopathy and thyromegaly. Lungs:Equal air entry on both lungs, no additional sounds Chest: no bruises Breast: Right normal breast exam, palpable small indurated mass around the left breast areola region with intense tenderness at the left lower outer quadrant without having any skin changes and no eczematous lesions. 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 Interstitial airspace opacities which could represent sequela of pulmonary edema, atypical infection, chronic lung changes/disease.. The lungs demonstrate bilateral patchy airspace opacities. The pulmonary vasculature is prominent. Small right pleural effusion. There is no pneumothorax. Aortic atherosclerotic disease. -CT chest and abdomen pelvis without IV contrast on 01/05/2025 showed IMPRESSION: Chest: 1. Scattered ground-glass and interstitial opacities in the bilateral lungs which could reflect multifocal atypical pneumonia. 2. Mild centrilobular emphysema. 3. No discrete left breast mass on CT. Follow-up with dedicated breast imaging if clinically indicated. 4. Small subcutaneous low-density lesion in the upper anterior lateral left chest which could reflect a sebaceous cyst. 5. [id number] 3-vessel calcified coronary artery disease, mild aortic valve calcifications, and severe calcified plaque in the thoracic aorta. Abdomen/pelvis: 1. Aneurysm of the infrarenal abdominal aorta measuring 4.1 cm transverse and 4.2 cm AP. Marked mixed atherosclerotic plaque in the aortoiliac vessels. 2. Pancolonic diverticulosis, moderate distally. 3. No noncontrast evidence of acute abnormality -carotid artery Doppler duplex ultrasound on 01/08/2025 showed CONCLUSION Heterogeneous irregular plaque visualized at the carotid artery bifurcation extending into the proximal internal carotid arteries bilaterally. However, no hemodynamically significant stenosis or occlusion visualized in the carotid arteries per criteria bilaterally. Less than 50% stenosis visualized in the internal carotid arteries bilaterally. Of note, visually the internal carotid arteries appear to be 50% stenosed bilaterally. Less than 50% stenosis visualized in the external and common carotid arteries bilaterally. Antegrade flow visualized in the vertebral arteries bilaterally. Multiphasic waveforms were noted in the subclavian arteries bilaterally. Mildly elevated velocities with turbulence noted in the subclavian arteries bilaterally, possibly suggesting a proximal obstruction. -CT head on 01/08/2025 showed IMPRESSION: NO ACUTE INTRACRANIAL HEMORRHAGE OR MASS EFFECT. -echocardiogram on 01/09/2025 showed LVEF 60-65%, systolic function normal, mildly dilated RV, RVSP 41 mm Hg, trace AI, mild MR, mild TR, normal pericardium and no effusion. Labs: Laboratory Tests Test 01/09/25 04:29 01/09/25 08:30 01/09/25 12:18 01/09/25 18:09 White Blood Count 1.6 X10'3 Red Blood Count 2.85 X10'6 Hemoglobin 8.5 g/dl Hematocrit 27.0 % Mean Corpuscular Volume 94.4 FL Mean Corpuscular Hemoglobin 29.8 PG Mean Corpuscular Hemoglobin Concent 31.6 g/dL Red Cell Distribution Width 19.6 % Platelet Count 52 X10'3 Mean Platelet Volume 7.7 FL Neutrophils (%) (Auto) 57.6 % Lymphocytes (%) (Auto) 41.1 % Monocytes (%) (Auto) 1.0 % Eosinophils (%) (Auto) 0 % Basophils (%) (Auto) 0.3 % Neutrophils # (Auto) 0.9 X10'3 Lymphocytes # (Auto) 0.7 X10'3 Monocytes # (Auto) 0.0 X10'3 Eosinophils # (Auto) 0.0 X10'3 Basophils # (Auto) 0.0 X10'3 CBC Comment Differential Total Cells Counted 100 Neutrophils % (Manual) 68.0 % Lymphocytes % (Manual) 31.0 % Metamyelocytes % 1.0 % Nucleated Red Blood Cells 1 /100WBC Platelet Estimate Decreased Large Platelets Moderate Red Blood Cell Morphology Perf Basophilic Stippling Anisocytosis 2+ Sodium Level 137 MMOL/L Potassium Level 4.8 MMOL/L Chloride Level 105 MMOL/L Carbon Dioxide Level 28.8 MMOL/L Anion Gap 3 Blood Urea Nitrogen 24 MG/DL Creatinine 0.73 MG/DL Estimated GFR/1.73 m2 75 ML/MIN BUN/Creatinine Ratio 32.9 Glucose Level 290 MG/DL Calcium Level 8.5 MG/DL Magnesium Level 2.3 MG/DL Total Bilirubin 0.3 MG/DL Aspartate Amino Transf (AST/SGOT) 49 U/L Alanine Aminotransferase (ALT/SGPT) 67 U/L Alkaline Phosphatase 56 IU/L Total Protein 6.4 G/DL Albumin 3.0 G/DL Globulin 3.4 G/DL Albumin/Globulin Ratio 0.9 Chemistry Comments Glucometer 364 mg/dl 218 mg/dl Test 01/09/25 20:38 01/10/25 05:14 01/10/25 07:14 01/10/25 12:34 Glucometer 279 mg/dl 119 mg/dl 198 mg/dl White Blood Count 2.7 X10'3 Red Blood Count 3.04 X10'6 Hemoglobin 9.0 g/dl Hematocrit 28.3 % Mean Corpuscular Volume 93.1 FL Mean Corpuscular Hemoglobin 29.7 PG Mean Corpuscular Hemoglobin Concent 32.0 g/dL Red Cell Distribution Width 19.2 % Platelet Count 63 X10'3 Mean Platelet Volume 8.1 FL Neutrophils (%) (Auto) 55.6 % Lymphocytes (%) (Auto) 39.9 % Monocytes (%) (Auto) 4.2 % Eosinophils (%) (Auto) 0 % Basophils (%) (Auto) 0.3 % Neutrophils # (Auto) 1.5 X10'3 Lymphocytes # (Auto) 1.1 X10'3 Monocytes # (Auto) 0.1 X10'3 Eosinophils # (Auto) 0.0 X10'3 Basophils # (Auto) 0.0 X10'3 CBC Comment Differential Total Cells Counted 100 Neutrophils % (Manual) 52.0 % Lymphocytes % (Manual) 42.0 % Monocytes % (Manual) 5.0 % Metamyelocytes % 1.0 % Platelet Estimate Decreased Red Blood Cell Morphology Perf Polychromasia Few Basophilic Stippling Anisocytosis 2+ Sodium Level 141 MMOL/L Potassium Level 3.8 MMOL/L Chloride Level 106 MMOL/L Carbon Dioxide Level 27.9 MMOL/L Anion Gap 7 Blood Urea Nitrogen 21 MG/DL Creatinine 0.63 MG/DL Estimated GFR/1.73 m2 89 ML/MIN BUN/Creatinine Ratio 33.3 Glucose Level 137 MG/DL Calcium Level 8.4 MG/DL Total Bilirubin 0.4 MG/DL Aspartate Amino Transf (AST/SGOT) 34 U/L Alanine Aminotransferase (ALT/SGPT) 65 U/L Alkaline Phosphatase 57 IU/L Total Protein 6.7 G/DL Albumin 3.3 G/DL Globulin 3.4 G/DL Albumin/Globulin Ratio 1.0 Chemistry Comments Discharge instructions: -Follow up with PCP in one week to monitor CBC CMP. -Follow up with hemat-oncologist after discharge. Call [facility] for your bone marrow biopsy results. -Follow up with Dr. Lui, infectious diseases and Dr. Martin, activity coordinator. -Taper the steroids as instructed. -Repeat CBC in 3-5 days. -Discuss regarding starting of Neupogen with your PCP or canvass manager. -In the event of fevers or worsening of symptoms, call 911 or go to the ER immediately. Recommended to wear a surgical mask while going outside. Resident MD attestation: Patient was seen, examined and discussed with attending MD, Dr. Miki MURPHY MD Internal Medicine Resident, PGY3 [facility] *Problems/Diagnosis: (1) Pancytopenia Status: Chronic Total Time Spent on D/C: > 30 Minutes Date of Service: Jan 10, 2025 Billing Provider: RENUKA TUTTLE MD, TIN, RES Jan 10, 2025 18:38
== END 2025-01-10 14:29 | disposition home or self-care (01) | DRG 694 ==
LOC: ER 14:29 → ED HOLD 16:46 → ORTHO 4S 21:49
PROVIDERS: ADMIT Family Medicine; ATTEND Family Medicine
PROC: 079T3ZX Drainage of Bone Marrow, Percutaneous Approach, Diagnostic (ICD-10-PCS; principal; 2025-01-08)
DX: D46.9 Myelodysplastic syndrome, unspecified (principal); J96.01 Acute respiratory failure with hypoxia; J15.69 Pneumonia due to other Gram-negative bacteria; D61.818 Other pancytopenia; J15.9 Unspecified bacterial pneumonia; J44.0 Chronic obstructive pulmonary disease with (acute) lower respiratory infection; I11.0 Hypertensive heart disease with heart failure; D75.81 Myelofibrosis; Z20.822 Contact with and (suspected) exposure to COVID-19; Z66 Do not resuscitate; I50.32 Chronic diastolic (congestive) heart failure; J43.9 Emphysema, unspecified; G89.29 Other chronic pain; K21.9 Gastro-esophageal reflux disease without esophagitis; M54.9 Dorsalgia, unspecified; R91.8 Other nonspecific abnormal finding of lung field; R73.9 Hyperglycemia, unspecified; T38.0X5A Adverse effect of glucocorticoids and synthetic analogues, initial encounter; G43.909 Migraine, unspecified, not intractable, without status migrainosus; I25.10 Atherosclerotic heart disease of native coronary artery without angina pectoris; E78.00 Pure hypercholesterolemia, unspecified; Z95.5 Presence of coronary angioplasty implant and graft; Z90.49 Acquired absence of other specified parts of digestive tract; I25.2 Old myocardial infarction; Y92.89 Other specified places as the place of occurrence of the external cause
CPT/HCPCS: 36415; 70450; 71046; 71250; 74176; 80053; 80061; 81001; 82248; 82272; 82607; 82728; 82948; 83010; 83036; 83540; 83550; 83605; 83615; 83735; 83880; 84145; 84443; 84466; 84484; 85007; 85025; 85045; 85384; 85610; 85651; 85730; 85999; 86038; 86140; 86340; 86663; 86664; 86665; 86703; 86705; 86747; 86803; 86880; 87040; 87081; 87340; 87522; 87804; 87811; 88184; 88185; 93005; 93306; 93880; 96365; 97161; 99285; A4615; G0378; J0456; J0696; J1171; J1815; J1956; J2919; J7512